=== PATIENT | female | born 1995 | race Caucasian/White ===

== ENCOUNTER → 2017-06-15 12:54 | Outpatient (CLI) | payer MEDICAID, SELFPAY ==
[2017-06-15 14:26] LABS: Absolute Lymphocyte Count 1.87 X10^3/ul (0.83-4.51); Absolute Neutrophil Count 3.4 X10^3/uL (2.0-7.7); Basophil# 0.01 X10^3/uL; Basophil% 0.2 % (0-1); Eosinophil# 0.13 X10^3/uL; Eosinophils% 2.2 % (0-5); Hematocrit 41.7 % (37-47); Hemoglobin 14.6 g/dl (12.0-15.0); Lymphocyte # 1.87 X10^3/ul (4.0); Lymphocyte % 31.5 % (19-41); Mean Corpuscular Hgb 30.5 pg (27.0-32.0); Mean Corpuscular Volume 87.1 fL (81-99); Mean Platelet Vol. 10.4 fl (6.2-12.0); Monocyte# 0.48 X10^3/uL; Monocyte% 8.1 % (0-10); Neutrophil # 3.44 X10^3/uL (2.7-7.7); Neutrophil % 57.8 % (47-70); POSITIVE COUNT NO; POSITIVE DIFFERENTIAL NO; POSITIVE MORPHOLOGY NO; Platelet Count 337 K/mm3 (150-450); RBC Distribution Width CV 12.6 % (11.6-14.6); RBC Distribution Width SD 39.5 fl (35.1-43.9); Red Blood Count 4.79 M/mm3 (4.2-5.4); White Blood Count 5.9 K/mm3 (4.4-11.0)
[2017-06-15 14:46] LABS: T4 Free Direct 0.91 ng/dL (0.76-1.46); Thyroid Stim Hormone (TSH) 0.83 uIU/mL (0.358-3.74)
== END ==
PROVIDERS: Family Provider Pediatrics; PCP Pediatrics; Visit Provider Pediatrics
DX: R63.5 Abnormal weight gain (principal); R53.83 Other fatigue
CPT/HCPCS: 36415; 84439; 84443; 85025

== ENCOUNTER → 2017-10-16 15:06 | Outpatient (CLI) | payer MEDICAID, SELFPAY ==
[2017-10-16 17:55] LABS: hCG Titer Quant., Serum < 1 mIU/mL (<9 non-preg)
[2017-10-16 17:59] LABS: Follicle Stimulating Hormone 7.3 mIU/mL; Luteinizing Hormone 11.4 mIU/mL; Prolactin 16.5 ng/mL; Thyroid Stim Hormone (TSH) 0.96 uIU/mL (0.358-3.74)
== END ==
PROVIDERS: Visit Provider Obstetrics & Gynecology
DX: N92.6 Irregular menstruation, unspecified (principal)
CPT/HCPCS: 36415; 83001; 83002; 84146; 84443; 84702

== ENCOUNTER 2017-11-22 08:31 | Outpatient (RCR) | payer MEDICAID, SELFPAY | END 2017-11-30 23:59 | LOC: NS 08:31 | PROVIDERS: Family Provider Pediatrics; PCP Pediatrics; Visit Provider Obstetrics & Gynecology | DX: R63.5 Abnormal weight gain (principal); Z71.3 Dietary counseling and surveillance ==

== ENCOUNTER 2017-11-24 10:17 | Emergency (ER) | payer MEDICAID, SELFPAY ==
[2017-11-24 10:18] VITALS: BP 136/74; PULSE 72; RESP 16; TEMP 36.7; O2SAT 98; BMI 37.0
--- NOTE | 2017-11-24 10:45 | ED.DCSUM_ITS ---
- ER Visit Summary Date of Service: 11/24/17 Chief Complaint: Vaginal bleeding History of Present Illness: The patient is a 22 F has had vaginal bleeding for the past 10 days. She is passing clots, this morning passed a large, egg-sized clot. Patient had a baby in December. She has had irregular periods since that time. Her last period before this current one was in July. She is an appointment to see her COSMETICS COUNTER MANAGER in 2 days. Physical Examination: Vital signs are unremarkable. Head neck examination is unremarkable. Heart is regular rate and rhythm. Lung sounds are clear. Abdomen is soft with mild suprapubic tenderness. No guarding or rebound. Test Results: CBC and chemistry studies are normal. test is negative. Pelvic ultrasound reveals endometrium measuring 17.9 mm and hypoechoic. There is some fluid in the endometrial canal. She has multiple follicles in each ovary. Emergency Department Course and Treatment: Patient was given IV fluids here. On repeat evaluation she is comfortable. I spoke with Dr. Cerna, on-call for Dr. Rolle. Patient is to keep her appointment for Sunday. Treatment Plan: [] Disposition: Discharge Impression: Menorrhagia This note was generated with GOkey dictation software. It may contain incorrect words, spelling, and punctuation that were not noted in review of the chart prior to signing ED Disposition - Plan for ED Patient: Chief Complaint: Vag Bleeding Referrals: Elisa Padilla MD [Primary Care Provider] -
[2017-11-24] MEDS: 0.9% Normal Saline 1,000 ML 150 ML IV (11:00)
[2017-11-24 11:13] LABS: Absolute Lymphocyte Count 2.27 X10^3/ul (0.83-4.51); Absolute Neutrophil Count 3.4 X10^3/uL (2.0-7.7); Basophil# 0.01 X10^3/uL; Basophil% 0.2 % (0-1); Eosinophil# 0.11 X10^3/uL; Eosinophils% 1.8 % (0-5); Hematocrit 39.4 % (37-47); Hemoglobin 13.3 g/dl (12.0-15.0); Lymphocyte # 2.27 X10^3/ul (4.0); Lymphocyte % 36.4 % (19-41); Mean Corp Hgb Conc 33.8 g/gl (32-36); Mean Corpuscular Hgb 29.8 pg (27.0-32.0); Mean Corpuscular Volume 88.3 fL (81-99); Mean Platelet Vol. 10.2 fl (6.2-12.0); Monocyte# 0.48 X10^3/uL; Monocyte% 7.7 % (0-10); Neutrophil # 3.37 X10^3/uL (2.7-7.7); Neutrophil % 53.9 % (47-70); Platelet Count 325 K/mm3 (150-450); RBC Distribution Width CV 12.8 % (11.6-14.6); RBC Distribution Width SD 40.9 fl (35.1-43.9); Red Blood Count 4.46 M/mm3 (4.2-5.4); White Blood Count 6.2 K/mm3 (4.4-11.0)
[2017-11-24 11:16] LABS: POSITIVE COUNT NO; POSITIVE DIFFERENTIAL NO; POSITIVE MORPHOLOGY NO
[2017-11-24 11:17] LABS: Anion Gap 7 (5-15); BUN 12 mg/dL (7-18); BUN/Creat Ratio 15.7 RATIO (10-20); Calcium,Total 8.6 mg/dL (8.5-10.1); Chloride 106 mmol/L (98-107); Creatinine, Serum 0.76 mg/dL (0.55-1.02); EST Glomerular Filtration Rate 102 mL/min (>60); Est Glom Filt Rate - Afr Amer 123 mL/min (>60); Estimated Creatinine Clearance 114.82 ml/min; Glucose 90 mg/dL (74-106); Potassium 3.8 mmol/L (3.5-5.1); Sodium Level 139 mmol/L (136-145)
[2017-11-24 11:44] LABS: Pregnancy, Serum, hCG Quali. NEGATIVE Negative (0-9 Nonpreg)
--- NOTE | 2017-11-24 11:51 | US_ITS ---
STUDY: ULTRASOUND TRANSVAGINAL CLINICAL: Female, 22 years old. Menorrhagia for 10 days. TECHNIQUE: Transvaginal COMPARISON: Pelvic ultrasound dated November 23, 2015. FINDINGS: Normal uterine size measuring 5.4 x 3.3 x 5.1 cm. The uterus appears retroflexed. There are no myometrial masses. Normal endometrial thickness measuring 8.2 mm. There are no endometrial masses, and there is no fluid in the endometrial cavity. There appear to be a small nabothian cyst. Normal right ovary, measuring 3.5 x 2.4 x 2.7 cm. There are multiple follicles with a dominant cyst. The dominant cyst measures 1.8 x 1.6 x 1.7 cm in size. Normal left ovary, measuring 2.9 x 1.7 x 2.1 cm. There are multiple follicles without a dominant cyst. There is no free fluid in the pelvis. Polycystic ovary disease: No. US/Transvaginal Non- IMPRESSION: 1. Normal sonographic appearance of the pelvis and both ovaries. 2. Small amount of pelvic fluid. Electronically Signed: Whitney Padilla MD at 14:37 EDT , Service support ,
[2017-11-24 14:55] VITALS: BP 114/61; PULSE 74; RESP 16; O2SAT 100
--- NOTE | 2017-11-24 15:26 | ED.DEP ---
ED Disposition - Plan for ED Patient: Disposition: Home or Assisted Living Chief Complaint: Vag Bleeding Instructions: ED Bleeding Menstrual Heavy Referrals: Luba Rolle MD [STAFF PHYSICIAN] - Keep [facility] appointment
[2017-11-24 15:36] VITALS: BP 116/78; PULSE 78; RESP 16; O2SAT 98
== END 2017-11-24 15:37 | disposition home or self-care (01) ==
PROVIDERS: Emergency Provider Emergency Medicine; Family Provider Pediatrics; PCP Pediatrics
DX: N92.0 Excessive and frequent menstruation with regular cycle (principal); R10.9 Unspecified abdominal pain
CPT/HCPCS: 76830; 80048; 84703; 85025; 93976; 96360; 96361; 99283; J7030; J7040; A4216

== ENCOUNTER 2017-12-07 08:16 | Outpatient (RCR) | payer MEDICAID, SELFPAY | END 2017-12-07 23:59 | LOC: NS 08:16 | PROVIDERS: Family Provider Pediatrics; PCP Pediatrics; Visit Provider Obstetrics & Gynecology | DX: R63.5 Abnormal weight gain (principal); Z71.3 Dietary counseling and surveillance | CPT/HCPCS: 97802 ==

== ENCOUNTER → 2018-07-02 14:40 | Outpatient (CLI) | payer OTHER, MEDICAID, SELFPAY | PROVIDERS: PCP Pediatrics; Visit Provider Obstetrics & Gynecology | DX: O35.8XX0 Maternal care for other (suspected) fetal abnormality and damage, not applicable or unspecified (principal); Z3A.00 Weeks of gestation of pregnancy not specified | CPT/HCPCS: 36415 ==

== ENCOUNTER 2018-08-07 20:00 | Outpatient (CLI) | payer OTHER, MEDICAID, SELFPAY ==
[2018-08-07 20:21] VITALS: BMI 36.4
[2018-08-07 20:36] LABS: Mucous, Urine 0 SEEN /hpf (<or=2+)
[2018-08-07 20:57] LABS: Color, Urine Yellow (Yellow); Glucose, Dipstick Normal (Normal); Ketone-Dipstick Negative (Negative); Leukocyte Esterase-Dipstick 100 /ul (Negative); Nitrite-Dipstick Negative (Negative); Occult Blood-Urine Negative /ul (Negative); Protein-Dipstick Negative (Negative); Urine Bilirubin Dipstick Negative (Negative); Urine Clarity Clear (Clear); Urine Urobilinogen 1 mg/dl (Normal)
[2018-08-07 21:26] LABS: Bacteria 2+ /hpf (None Seen); Red Blood Cells-Urine 0-5 SEEN /hpf (0-5); White Blood Cells 0-5 SEEN /hpf (0-5)
[2018-08-07 21:27] LABS: Squamous Epithelial Cells - UA 10-25 SEEN /hpf (5-10)
--- NOTE | 2018-08-14 08:04 | OB.TRI.NOTE ---
History of Present Illness Date of Service: 08/07/18 Was patient seen by the physician?: Yes Reason For Visit: ABD PAIN Date of Service: 08/07/18 Final MARLEN: 11/25/18 Final MARLEN Source: US <20 weeks Gestational age: 25 Weeks and 2 Days History of Present Illness: Complains of right low back pain. SOme urinary urgency and frequency. No hematuria. Good movement. No signs of PPROM. 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 History of excision of lesion EXCISION 8 MM LESION LEFT OCCIPITAL SCALP, MEDIAL, WITH 3 CM LAYERED CLOSURE AND EXCISION LESION LEFT OCCIPITAL SCALP, LATERAL, WITH 2 CM LAYERED CLOSURE- 12/10/15 Laboratory Studies: Laboratory Tests 08/07/18 Range/Units 20:10 Urine Color Yellow (Yellow) Urine Clarity Clear (Clear) Urine pH 7.0 (5.0 - 8.0) Ur Specific [place] 1.010 (1.002-1.030) Urine Protein Negative (Negative) mg/dl Urine Glucose (UA) Normal (Normal) mg/dl Urine Ketones Negative (Negative) mg/dl Urine Occult Blood Negative (Negative) /ul Urine Nitrite Negative (Negative) Urine Bilirubin Negative (Negative) mg/dL Urine Urobilinogen 1 H (Normal) mg/dl Ur Leukocyte Esterase 100 H (Negative) /ul Urine RBC 0-5 SEEN (0-5) /hpf Urine WBC 0-5 SEEN (0-5) /hpf Ur Squamous Epith Cells 10-25 SEEN (5-10) /hpf Urine Bacteria 2+ (None Seen) /hpf Urine Mucus 0 SEEN (<or=2+) /hpf Physical Exam General: Alert, Oriented x3, Cooperative, No apparent distress Cardiovascular: Regular rate, Regular Rhythm Lungs: Clear to auscultation, Normal air movement Abdomen: Soft, Non Tender, Non-Distended, Gravid, Appropriate for Gestational Age Extremities:: No edema Neurological: Neuro grossly intact [facility] SPECIALIST: Normal external genitalia Estimated gestational size: Appropriate for gestational size Presentation: Unable to assess NST - FHR Rate Baby A Baseline: 140s Variability:: Moderate Accelerations:: 10 x 10 Decelerations:: None NST Reactive:: Yes, Appropriate for gestational age FHR Category:: Category I Uterine Activity:: none Impression/Plan Not in labor. Reassured. NST appropriate for gestational age.
--- NOTE | 2018-08-14 08:08 | OB.TRI.HP_ITS ---
History of Present Illness Date of Service: 08/07/18 Was patient seen by the physician?: Yes Reason For Visit: ABD PAIN Date of Service: 08/07/18 Final MARLEN: 11/25/18 Final MARLEN Source: US <20 weeks Gestational age: 25 Weeks and 2 Days History of Present Illness: Complains of right low back pain. SOme urinary urgency and frequency. No hematuria. Good movement. No signs of PPROM. 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 History of excision of lesion EXCISION 8 MM LESION LEFT OCCIPITAL SCALP, MEDIAL, WITH 3 CM LAYERED CLOSURE AND EXCISION LESION LEFT OCCIPITAL SCALP, LATERAL, WITH 2 CM LAYERED CLOSURE- 12/10/15 Laboratory Studies: Laboratory Tests 08/07/18 Range/Units 20:10 Urine Color Yellow (Yellow) Urine Clarity Clear (Clear) Urine pH 7.0 (5.0 - 8.0) Ur Specific [place] 1.010 (1.002-1.030) Urine Protein Negative (Negative) mg/dl Urine Glucose (UA) Normal (Normal) mg/dl Urine Ketones Negative (Negative) mg/dl Urine Occult Blood Negative (Negative) /ul Urine Nitrite Negative (Negative) Urine Bilirubin Negative (Negative) mg/dL Urine Urobilinogen 1 H (Normal) mg/dl Ur Leukocyte Esterase 100 H (Negative) /ul Urine RBC 0-5 SEEN (0-5) /hpf Urine WBC 0-5 SEEN (0-5) /hpf Ur Squamous Epith Cells 10-25 SEEN (5-10) /hpf Urine Bacteria 2+ (None Seen) /hpf Urine Mucus 0 SEEN (<or=2+) /hpf Physical Exam General: Alert, Oriented x3, Cooperative, No apparent distress Cardiovascular: Regular rate, Regular Rhythm Lungs: Clear to auscultation, Normal air movement Abdomen: Soft, Non Tender, Non-Distended, Gravid, Appropriate for Gestational Age Extremities:: No edema Neurological: Neuro grossly intact VICE PRESIDENT OF TALENT ACQUISITION: Normal external genitalia Estimated gestational size: Appropriate for gestational size Presentation: Unable to assess NST - FHR Rate Baby A Baseline: 140s Variability:: Moderate Accelerations:: 10 x 10 Decelerations:: None NST Reactive:: Yes, Appropriate for gestational age FHR Category:: Category I Uterine Activity:: none Impression/Plan Not in labor. Reassured. NST appropriate for gestational age.
== END 2018-08-07 21:50 | disposition home or self-care (01) ==
LOC: WPOUT 20:14 → WP 20:15
PROVIDERS: Visit Provider Obstetrics & Gynecology
DX: O26.892 Other specified pregnancy related conditions, second trimester (principal); R10.9 Unspecified abdominal pain; R35.0 Frequency of micturition; R39.15 Urgency of urination; M54.5 Low back pain; O99.512 Diseases of the respiratory system complicating pregnancy, second trimester; J45.909 Unspecified asthma, uncomplicated; Z3A.25 25 weeks gestation of pregnancy
CPT/HCPCS: 59025; 59050; 81001; 87086; 87088; 99218; G0378

== ENCOUNTER 2018-08-31 18:50 | Outpatient (CLI) | payer OTHER, MEDICAID, SELFPAY ==
[2018-08-21 11:23] VITALS: BMI 36.4
[2018-08-31 19:05] VITALS: BMI 36.2
[2018-08-31 19:34] LABS: ROM Internal Control Test YES-OK TO RESULT pt. (Internal QC); ROM Patient Test Negative (Negative)
--- NOTE | 2018-09-09 21:36 | OB.TRI.NOTE ---
History of Present Illness Was patient seen by the physician?: No Reason For Visit: R/O LABOR Date of Service: 08/31/18 Final MARLEN: 11/25/18 Final MARLEN Source: US <20 weeks Gestational age: 27 Weeks and 5 Days History of Present Illness: 27+ week intrauterine presents with some clear leaking fluid. Concerned about rupture of membranes. 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 ROM test negative. Reactive nonstress test with no contractions. Will release to home with routine instructions.
== END 2018-08-31 19:55 | disposition home or self-care (01) ==
LOC: WPOUT 18:57 → WP 18:57
PROVIDERS: Family Provider Pediatrics; PCP Pediatrics; Visit Provider Obstetrics & Gynecology
DX: O26.892 Other specified pregnancy related conditions, second trimester (principal); N89.8 Other specified noninflammatory disorders of vagina; Z3A.27 27 weeks gestation of pregnancy
CPT/HCPCS: 59025; 59050; 84112; 99218; G0378

== ENCOUNTER 2018-10-15 00:30 | Outpatient (CLI) | payer OTHER, MEDICAID, SELFPAY ==
[2018-10-15 00:56] VITALS: BMI 36.8
[2018-10-15 01:22] LABS: Bacteria 0 SEEN /hpf (None Seen); Red Blood Cells-Urine 0 SEEN /hpf (0-5)
[2018-10-15 01:43] LABS: Mucous, Urine 2+ /hpf (<or=2+); Squamous Epithelial Cells - UA 25-50 SEEN /hpf (5-10); White Blood Cells 0-5 SEEN /hpf (0-5)
[2018-10-15 02:10] LABS: Color, Urine Yellow (Yellow); Glucose, Dipstick Normal (Normal); Ketone-Dipstick 15 mg/dl (Negative); Leukocyte Esterase-Dipstick 25 /ul (Negative); Nitrite-Dipstick Negative (Negative); Occult Blood-Urine Negative /ul (Negative); Protein-Dipstick 15 mg/dl (Negative); Urine Bilirubin Dipstick Negative (Negative); Urine Clarity Clear (Clear); Urine Urobilinogen 1 mg/dl (Normal)
[2018-10-15] MEDS: Acetaminophen 500 MG Tablet 1000 MG PO (04:07)
--- NOTE | 2018-10-18 10:05 | OB.TRI.NOTE ---
History of Present Illness Date of Service: 10/15/18 Was patient seen by the physician?: Yes Reason For Visit: STOMACH PAIN Date of Service: 10/15/18 Final MARLEN: 11/25/18 Final MARLEN Source: US <20 weeks Gestational age: 34 Weeks and 2 Days History of Present Illness: 34-week intrauterine presents with some abdominal crampiness. care otherwise has been uneventful. Thinks she might have a bladder infection. 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 History of excision of lesion EXCISION 8 MM LESION LEFT OCCIPITAL SCALP, MEDIAL, WITH 3 CM LAYERED CLOSURE AND EXCISION LESION LEFT OCCIPITAL SCALP, LATERAL, WITH 2 CM LAYERED CLOSURE- 12/10/15 Laboratory Studies: Laboratory Tests 10/15/18 Range/Units 01:15 Urine Color Yellow (Yellow) Urine Clarity Clear (Clear) Urine pH 6.0 (5.0 - 8.0) Ur Specific [place] 1.020 (1.002-1.030) Urine Protein 15 H (Negative) mg/dl Urine Glucose (UA) Normal (Normal) mg/dl Urine Ketones 15 H (Negative) mg/dl Urine Occult Blood Negative (Negative) /ul Urine Nitrite Negative (Negative) Urine Bilirubin Negative (Negative) mg/dL Urine Urobilinogen 1 H (Normal) mg/dl Ur Leukocyte Esterase 25 H (Negative) /ul Urine RBC 0 SEEN (0-5) /hpf Urine WBC 0-5 SEEN (0-5) /hpf Ur Squamous Epith Cells 25-50 SEEN (5-10) /hpf Urine Bacteria 0 SEEN (None Seen) /hpf Urine Mucus 2+ (<or=2+) /hpf NST - FHR Rate Baby A NST Reactive:: Yes FHR Category:: Category I Uterine Activity:: Mild uterine irritability Impression/Plan 34+ week intrauterine with some transient contractions. Cervix is nonthreatening. Reactive nonstress test. Discomfort subsided with p.o. fluids and after monitoring for several hours. Urine analysis was negative. Discharged to home with routine instructions and she is to return if contractions become stronger.
== END 2018-10-15 05:55 | disposition home or self-care (01) ==
LOC: WPOUT 00:40 → WP 00:41
PROVIDERS: Family Provider Pediatrics; PCP Pediatrics; Visit Provider Obstetrics & Gynecology
DX: O26.893 Other specified pregnancy related conditions, third trimester (principal); R10.9 Unspecified abdominal pain; Z3A.34 34 weeks gestation of pregnancy
CPT/HCPCS: 59025; 59050; 81001; 87086; 87088; 99218; G0378

== ENCOUNTER 2018-11-16 23:54 | Outpatient (CLI) | payer OTHER, MEDICAID, SELFPAY ==
[2018-11-17 00:51] VITALS: BMI 37.0
[2018-11-17 01:08] LABS: ROM Internal Control Test YES-OK TO RESULT pt. (Internal QC); ROM Patient Test Negative (Negative)
--- NOTE | 2018-11-17 10:36 | OB.TRI.NOTE ---
History of Present Illness Date of Service: 11/17/18 Was patient seen by the physician?: No Reason For Visit: RULE OUT LABOR Final MARLEN: 11/25/18 Final MARLEN Source: US <20 weeks Gestational age: 38 Weeks and 6 Days History of Present Illness: 23yo @ 38 6/7wga with c/o contractions Allergies No Known Allergies Allergy (Verified 11/17/18 00:54) - Pertinent Past Medical History Medical History: Past Medical History (Last Updated 08/21/18 @ 11:13 by Shirley Le) Anxiety and depression Asthma Back pain Frequent headaches Intradermal nevus POLYPOID INTRADERMAL NEVUS LEFT OCCIPITAL SCALP MEDIAL INTRADERMAL NEVUS LEFT OCCIPITAL SCALP, LATERAL Seasonal allergies UTI (urinary tract infection) Vision problems Surgical History: Past Surgical History (Last Updated 07/17/18 @ 15:02 by Shirley Le) 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
== END 2018-11-17 03:05 | disposition home or self-care (01) ==
LOC: WPOUT 11-17 00:39 → WP 11-17 00:40
PROVIDERS: Family Provider Pediatrics; PCP Pediatrics; Visit Provider Obstetrics & Gynecology
DX: O47.1 False labor at or after 37 completed weeks of gestation (principal); Z3A.38 38 weeks gestation of pregnancy
CPT/HCPCS: 59050; 84112; 99218; G0378

== ENCOUNTER 2018-11-18 13:45 | Inpatient (IN) | payer OTHER, MEDICAID, SELFPAY ==
[2018-11-17 00:51] VITALS: BMI 37.0
[2018-11-18 10:32] VITALS: BMI 37.0
[2018-11-18 12:41] LABS: Hematocrit 31.9 % (37-47); Mean Corp Hgb Conc 34.5 g/dL (32-36); Mean Corpuscular Hgb 29.7 pg (27.0-32.0); Mean Corpuscular Volume 86.2 fL (81-99); Mean Platelet Vol. 10.8 fl (6.2-12.0); Platelet Count 282 K/mm3 (150-450); RBC Distribution Width CV 12.5 % (11.6-14.6); White Blood Count 6.5 K/mm3 (4.4-11.0)
[2018-11-18 12:45] LABS: Protein, Urine (Random) 35.5 mg/dL (<11.9); Protein:Creat Ratio 202 mg/g CRE (0-200)
[2018-11-18 13:11] LABS: ALB/GLOB Ratio 0.6 RATIO (0.9-2.4); AST(SGOT) 78 U/L (15-37); Alanine Aminotransfer ALT/SGPT 79 U/L (13-56); Albumin, Serum 2.5 g/dL (3.2-5.0); Alkaline Phosphatase 211 U/L (45-117); Anion Gap 6 (5-15); BUN 9 mg/dL (7-18); BUN/Creat Ratio 15.4 RATIO (10-20); Calcium,Total 8.6 mg/dL (8.5-10.1); Chloride 109 mmol/L (98-107); Creatinine, Serum 0.58 mg/dL (0.55-1.02); EST Glomerular Filtration Rate 138 mL/min (>60); Est Glom Filt Rate - Afr Amer 167 mL/min (>60); Estimated Creatinine Clearance 149.21 ml/min; Globulin 4.2 g/dL (2.2-4.2); Glucose 90 mg/dL (74-106); Potassium 3.6 mmol/L (3.5-5.1); Protein, Total 6.7 g/dL (6.4-8.2); Sodium Level 138 mmol/L (136-145); Uric Acid 4.3 mg/dL (2.6-6.0)
--- NOTE | 2018-11-18 13:58 | PCM.HP.OB ---
- Problem List (1) 39 weeks gestation of Status: Acute (2) Cholestasis Status: Acute History Date of Admission: 11/18/18 Final MARLEN: 11/25/18 Final MARLEN Source: US <20 weeks Gestational age: 39 weeks History of this : This is a 23 year-old, G [3], P [2], at 39 weeks gestational age. 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 History of excision of lesion Z98.890, Z87.2 EXCISION 8 MM LESION LEFT OCCIPITAL SCALP, MEDIAL, WITH 3 CM LAYERED CLOSURE AND EXCISION LESION LEFT OCCIPITAL SCALP, LATERAL, WITH 2 CM LAYERED CLOSURE- 12/10/15 Allergies No Known Allergies Allergy (Verified 11/17/18 00:54) Home Medications: Home Medications loqazidqje-ozuoslmksmrbp-oqpcvoqo 50 mg-325 mg-40 mg tablet 1 tab PO Q6H PRN 08/21/18 Hydroxyzine Pamoate [Vistaril] 1 tab PO BID PRN 08/31/18 Wnyuwg65/Iron Fum,Ps/Folic/Dha 1 tab PO DAILY 08/31/18 Acetaminophen [Tylenol Extra Strength] 500 mg PO PRN PRN 10/15/18 Ranitidine [Zantac] 150 mg PO BID PRN 10/15/18 Smoking Status: Never smoker Alcohol: None Number of Fetus(es): 1 NST - FHR Rate Baby A Baseline: 125 Variability:: Moderate Accelerations:: 15 x 15 Decelerations:: None NST Reactive:: Yes FHR Category:: Category I Uterine Activity:: 0-1/10 min History Past Pregnancies: Past Pregnancies Delivery Date GA/Weeks Outcome Route Weight Gender Labor Length Anesthesia Delivery Location 12/2013 40 Living 7lb 3.8oz M 8 Epidural [facility] 12/2016 39 Living RISHABH 7lb 5.8oz M 8 Epidural [facility] Expected Delivery Method: Spontaneous Vaginal Describe any other labor & delivery plans:: Pitocin induction of labor Review of Systems Constitutional: Denies: Fever Cardiovascular: Denies: Chest Pain, Edema Respiratory: Denies: Cough, Shortness of Breath Gastrointestinal: Denies: Abdominal Pain, Nausea, Vomiting Neurological: Reports: Headaches Physical Exam Vitals: AVSS General: Alert, Oriented x3, No apparent distress HEENT: Atraumatic, Normocephalic Cardiovascular: Regular rate, Regular Rhythm, Normal S1, Normal S2 Lungs: Clear to auscultation, Normal air movement Abdomen: Soft, Non Tender, Non-Distended, Gravid, - - US - cephalic fetus Extremities:: No edema Neurological: Neuro grossly intact RN UROLOGY: Normal external genitalia Estimated gestational size: Appropriate for gestational size Presentation: Cephalic Cervix Dilation (cm): 2 - per RN exam Station: -2 Effacement (%): 70 Assessment/Plan All Active Problems (Last Updated 08/21/18 @ 11:13 by Shirley Le) 39 weeks gestation of (Acute) Cholestasis (Acute) This is a 23 year-old, G [3], P [2001], at 39 weeks gestational age with cholestasis of . -Elevated LFTs, hx chronic headaches with no other evidence of preeclampsia. -Findings reviewed with patient, advised IOL. Plan pitocin for Johnson score = 6. -Discussed induction process and labor/delivery risks, benefits - including but not limited to risk for pain, bleeding, infection, injury to bowel or bladder, VTE, need for vacuum delivery, internal monitoring, possible section, need for further surgery including but not limited to dilation and curettage or hysterectomy, or . -Patient given opportunity to ask questions and questions answered to her satisfaction. -Maternal and statuses reassuring -LARC declined
[2018-11-18] MEDS: Lactated Ringers 1,000 ML 50 ML IV (14:50)
[2018-11-18 15:19] LABS: Absolute Neutrophil Count 5.4 X10^3/uL (2.0-7.7); Basophil# 0.01 X10^3/uL; Basophil% 0.1 % (0-1); Eosinophil# 0.05 X10^3/uL; Eosinophils% 0.7 % (0-5); Hematocrit 34.9 % (37-47); Hemoglobin 11.8 g/dL (12.0-15.0); Mean Corp Hgb Conc 33.8 g/dL (32-36); Mean Corpuscular Hgb 29.1 pg (27.0-32.0); Mean Corpuscular Volume 86.2 fL (81-99); Mean Platelet Vol. 11.1 fl (6.2-12.0); Monocyte% 6.7 % (0-10); NRBC Flagged by Analyzer 0 % (0-5); Neutrophil # 5.41 X10^3/uL (2.7-7.7); Platelet Count 304 K/mm3 (150-450); RBC Distribution Width CV 12.7 % (11.6-14.6); RBC Distribution Width SD 39.7 fl (35.1-43.9); Red Blood Count 4.05 M/mm3 (4.2-5.4); White Blood Count 7.5 K/mm3 (4.4-11.0)
[2018-11-18] MEDS: Oxytocin 30 units/NS 500 ml 30 UNITS/500 ML IV.SOLN IV (15:43)
[2018-11-18] MEDS: Mag Hydrox/Al Hydrox/Simeth 30 ML UDC PO (21:27)
[2018-11-18] MEDS: Lactated Ringers 1,000 ML 999 ML IV (21:27)
[2018-11-18] MEDS: Oxytocin 30 units/NS 500 ml 30 UNITS/500 ML IV.SOLN 334 UNITS IV (21:39)
[2018-11-18] MEDS: Methylergonovine 0.2 MG/ML Ampul IM (21:48)
--- NOTE | 2018-11-18 21:54 | PCM.OPRPT ---
Vaginal Delivery Maternal Presentation: Medically Indicated Induction Method of Induction: Pitocin, Amniotomy Medical Reason for Induction: - - Cholestasis of Amniotic Membrane Rupture Type: Artificial Amniotic Fluid Description: Clear Final MARLEN: 11/25/18 Final MARLEN Source: US <20 weeks Gestational age: 39 Weeks and 0 Days Date of Procedure: 11/18/18 Pre-Operative Diagnosis: IUP; Cholestasis of Post-Operative Diagnosis: IUP; Cholestasis of Surgery/ Procedure Performed: Spontaneous Vaginal Delivery Type of Anesthesia: None Description of Procedure: Spontaneous vaginal delivery of a viable female infant with Apgars of 9/9 from an occiput anterior presentation with clear amniotic fluid and normal three-vessel placenta. No episiotomy or lacerations. Patient precipitously delivered and Maria Fernanda Altman CNM, entered the room immediately before delivery and was present as the baby delivered. Dr. Sim Cerna MD, arrived immediately thereafter and eventually ligated the umbilical cord and delivered placenta. Methergine was ordered to help with oozing that was slow to subside. Presentation: Vertex Placental Delivery Description: Spontaneous Placenta Disposition: [facility] Cord Vessel Description: 3 Vessels Cord Entanglement: None Estimated Blood Loss: 250 cc Infant A gender: Female (1 minute): 9 (5 minute): 9 Episiotomy Description: None Laceration: None Medications given after delivery: IV Pitocin, IM Methergin Complications: None
--- NOTE | 2018-11-18 22:04 | DCINST_ITS ---
Discharge Diet: No Restrictions Discharge Activity: May Shower, May Take a Tub Bath May resume sexual activity in: 4-6 weeks Additional Activity Instructions:: Nothing in the vagina for 4-6 weeks. You may return to work/school in 6 weeks. Call your doctor if you observe: Fever of 101 or Higher, Inability to urinate, Inability to have a bowel movement, Using more than one pad per hour Additional Instructions: If you experience any of the following, contact your healthcare provider. * Bleeding that soaks a pad every hour for 2 hours * Unrelieved incision or abdominal pain * Swelling, redness, discharge or bleeding from your incision or episiotomy site * Your incision begins to separate * Problems urinating (including inability to urinate or burning while urinating). * Visual changes * Severe headache * Flu-like symptoms * Pain or redness in one of both of your breasts * Pain, warmth, tenderness or swelling in your legs, especially the calf area * Frequent nausea and vomiting * Symptoms of depression or anxiety If you experience any of the following, call 911 or go to the nearest Emergency Room. * Chest pain * Problems breathing * Seizure activity * Partial or complete paralysis of a body part, slurred speech, weakness or drooping of the face, or a sudden inability to walk or hold your balance Allergies/Adverse Reactions: Allergies No Known Allergies Allergy (Verified 11/17/18 00:54) Medications to take at Discharge cmqcrhumqs-ewrrypmmljqwo-clbzlawt 50 mg-325 mg-40 mg tablet 1 tab PO Q6H PRN 08/21/18 Hydroxyzine Pamoate [Vistaril] 1 tab PO BID PRN 08/31/18 Gaqnok71/Iron Fum,Ps/Folic/Dha 1 tab PO DAILY 08/31/18 Acetaminophen [Tylenol Extra Strength] 500 mg PO PRN PRN 10/15/18 Ranitidine [Zantac] 150 mg PO BID PRN 10/15/18 Please Follow Up With: Luba Rolle MD When: Call to make an appointment with your doctor in 6 weeks. Primary Care Physician: Elisa Padilla MD [Primary Care Provider] - Test Results: Test results from this visit will be discussed in further detail at your follow- up appointment, if applicable.
[2018-11-18] MEDS: Ibuprofen 600 MG Tablet PO (23:47)
[2018-11-19 03:00] VITALS: BP 122/67; PULSE 76; RESP 16; TEMP 37.3
[2018-11-19] MEDS: Ibuprofen 600 MG Tablet PO ×2 (05:39→11:21)
--- NOTE | 2018-11-19 07:23 | PN.OBGYN_ITS ---
Patient Problems: Active and Suspected Problems (Last Updated 08/21/18 @ 11:13 by Shirley Le) 39 weeks gestation of (Acute) Cholestasis (Acute) Subjective: Patient without complaints. Breast-feeding going well. Reports minimal vaginal bleeding. - Physical Exam Vital Signs Temp Pulse Resp BP 99.2 F H 76 16 122/67 H 11/19/18 03:00 11/19/18 03:00 11/19/18 03:00 11/19/18 03:00 Weight: 236 lb 15.951 oz Body Mass Index (BMI) 37.0 Intake and Output for Last 24 Hours 11/17/18 11/18/18 11/19/18 23:59 23:59 23:59 Intake Total 763 / 763 Output Total 850 / 1250 800 / 800 Balance -87 / -487 -800 / -800 Laboratory Tests Past 24 Hrs 11/18/18 11/18/18 11/18/18 12:00 12:10 12:10 WBC 6.5 RBC 3.70 L Hgb 11.0 L Hct 31.9 L MCV 86.2 MCH 29.7 MCHC 34.5 RDW Std Deviation 39.0 RDW Coeff of Juan Jose 12.5 Plt Count 282 MPV 10.8 Immature Gran % (Auto) Neut % (Auto) Lymph % (Auto) Alexander % (Auto) Eos % (Auto) Baso % (Auto) Absolute Neuts (auto) Absolute Lymphs (auto) Nucleated RBC % Sodium 138 Potassium 3.6 Chloride 109 H Carbon Dioxide 23.0 Anion Gap 6 BUN 9 Creatinine 0.58 Estim Creat Clear Calc 149.21 Est GFR (MDRD) Af Amer 167 Est GFR (MDRD) Non-Af 138 BUN/Creatinine Ratio 15.4 Glucose 90 Uric Acid 4.3 Calcium 8.6 Total Bilirubin 1.30 H AST 78 H ALT 79 H Alkaline Phosphatase 211 H Total Protein 6.7 Albumin 2.5 L Globulin 4.2 Albumin/Globulin Ratio 0.6 L U Random Total Protein 35.5 H Urine Creatinine 176.00 Protein/Creatinin Ratio 202 H 11/18/18 14:50 WBC 7.5 RBC 4.05 L Hgb 11.8 L Hct 34.9 L MCV 86.2 MCH 29.1 MCHC 33.8 RDW Std Deviation 39.7 RDW Coeff of Juan [place] 12.7 Plt Count 304 MPV 11.1 Immature Gran % (Auto) 0.500 Neut % (Auto) 72.0 H Lymph % (Auto) 20.0 Alexander % (Auto) 6.7 Eos % (Auto) 0.7 Baso % (Auto) 0.1 Absolute Neuts (auto) 5.4 Absolute Lymphs (auto) 1.50 Nucleated RBC % 0 Sodium Potassium Chloride Carbon Dioxide Anion Gap BUN Creatinine Estim Creat Clear Calc Est GFR (MDRD) Af Amer Est GFR (MDRD) Non-Af BUN/Creatinine Ratio Glucose Uric Acid Calcium Total Bilirubin AST ALT Alkaline Phosphatase Total Protein Albumin Globulin Albumin/Globulin Ratio U Random Total Protein Urine Creatinine Protein/Creatinin Ratio Medical Necessity - Tobacco Use Smoking Status: Never smoker Assessment/Plan All Active Problems (Last Updated 08/21/18 @ 11:13 by Shirley Le) 39 weeks gestation of (Acute) Cholestasis (Acute) Doing well day #2 status post routine spontaneous vaginal delivery. Continuing present care.
[2018-11-19 08:45] VITALS: BP 117/62; PULSE 78; RESP 16; TEMP 36.8; O2SAT 98
--- NOTE | 2018-11-19 12:00 | NURSING ---
Patient ambulated to bathroom to shower. Tolerated well. Sitting in bed. Family at bedside. Call light in reach. Denies further needs at this time.
[2018-11-19 12:39] VITALS: BP 127/65; PULSE 95; RESP 18; TEMP 36.2
[2018-11-19] MEDS: Acetaminophen 500 MG Tablet 1000 MG PO (14:28)
[2018-11-19 16:15] VITALS: BP 119/62; PULSE 88; RESP 16; TEMP 36.3
[2018-11-19 19:55] VITALS: BP 124/71; PULSE 97; RESP 18; TEMP 37.1
[2018-11-20] MEDS: Ibuprofen 600 MG Tablet PO (00:04)
[2018-11-20 02:05] VITALS: BP 115/68; PULSE 84; RESP 18; TEMP 36.3
[2018-11-20 08:00] VITALS: BP 114/72; PULSE 82; RESP 16; TEMP 36.6
--- NOTE | 2018-11-20 10:01 | PCM.PN.OB ---
Patient Problems: Active and Suspected Problems (Last Updated 08/21/18 @ 11:13 by Shirley Le) 39 weeks gestation of (Acute) Cholestasis (Acute) Subjective: Patient without complaints. Breast-feeding going well. Ready to go home today. - Physical Exam Vital Signs Temp Pulse Resp BP Pulse Ox 97.9 F 82 16 114/72 98 11/20/18 08:00 11/20/18 08:00 11/20/18 08:00 11/20/18 08:00 11/19/18 08:45 Oxygen Delivery Method Room Air Weight: 236 lb 15.951 oz Body Mass Index (BMI) 37.0 Intake and Output for Last 24 Hours 11/18/18 11/19/18 11/20/18 23:59 23:59 23:59 Intake Total 763 / 763 Output Total 850 / 1250 800 / 800 Balance -87 / -487 -800 / -800 Medical Necessity - Tobacco Use Smoking Status: Never smoker Assessment/Plan All Active Problems (Last Updated 08/21/18 @ 11:13 by Shirley Le) 39 weeks gestation of (Acute) Cholestasis (Acute) Doing well day #2 status post routine spontaneous vaginal delivery. Will release to home with routine instructions
--- NOTE | 2018-11-20 12:20 | CASEMGMT ---
Addendum entered and electronically signed by Maite Bernal 11/20/18 12:38: Date of Referral/Notification: 11/19/2018 Time of Referral: [id number] Referred By: Dr. Lynsey Finney Reason for Referral: history of anxiety Original Note: Social Work Labor and Delivery Unit Brief Assessment Date of Referral/Notification: Time of Referral: Referred By: Reason for Referral: Date of Intervention: 11/20/2018 Time of Intervention: 1040 Informant: Medical record and mother of baby (MOB) Sejal Huddleston History: MOB is 23 year old female, G3, P2 to 3 after delivery of baby girl Ayana Huddleston this admission. MOB is to father of baby (FOB) Nasir Huddleston, have been together since high school for the last 6 and 1/2 years. MOB and FOB now have 3 children together: Ayana (born 11.18.2018), Dionicio (born 01.08.2014), and Shadi (born 01-13-2017). MOB's care for Ayana started at 10 weeks gestation. MOB had college classes completed, currently stays at home and cares for the kids. FOB works fulltime at [employer]. MOB reports history of anxiety, and dealt increased emotions after first born, which MOB reports resolved fairly quickly, within a couple of weeks after onset. After second born MOB developed some anxiety which MOB attributes to have a new baby, working on breast feeding, and going to school. MOB reports was prescribed medication, Vistaril, to take as needed. MOB reports has been feeling pretty good at this time, denies any worries or concerns about depression or anxiety. No reports of any substance use issues for self or for FOB. No reports of any home safety issues. Denies any history of legal or children service involvement. Assessment: MOB pleasant and cooperative with social work visit. MOB reports to be feeling good, reports to feel a connection to baby, and feels ready to go home. MOB reports that is on transitional medicaid and will only be on this for a couple more months as FOB has insurance through employer. MOB income is over threshold for [facility], even with the addition of the new baby. MOB reports awareness of this resource should finances change for the family. MOB to have all needed infant supplies, no issues with housing or transportation reported. FOB ill be home for a day to help, then has to return to work. MOB's mother will be coming to the house to help MOB and provide addition support as MOB transitions to caring for three kids. MOB reports should anxiety surface then would use prescribe Vistaril, agrees to talk to doctor, and reports that when feeling stressed usually talks to FOB who is supportive. MOB denies any needs for home going but did accept [facility] resource list and depression packet that includes online resources. MOB smiled at appropriate times, held good eye contact, held baby and was gentle and calm. MOB looked at baby a few times, gazing at baby and smiling. MOB denies any other needs for home going. No concerns voiced by nursing staff regarding mother/child interactions. Plan: MOB and baby to home when ready. Community resource lists and depression packets given. No further needs requested or indicated. -RICCARDO Butcher, RISK ASSESSMENT ANALYST
== END 2018-11-20 10:45 | disposition home or self-care (01) | DRG 805 ==
LOC: WPOUT 14:07 → WP 15:28
PROVIDERS: Admitting Provider Obstetrics & Gynecology; Family Provider Pediatrics; PCP Pediatrics; Referring Provider Obstetrics & Gynecology; Visit Provider Obstetrics & Gynecology
DX: O26.62 Liver and biliary tract disorders in childbirth (principal); K83.1 Obstruction of bile duct; Z37.0 Single live birth; Z3A.39 39 weeks gestation of pregnancy
CPT/HCPCS: 59025; 59050; 76815; 80053; 82570; 84156; 84550; 85025; 85027; 99218; J7120; G0378

== ENCOUNTER 2019-03-13 06:28 | Day surgery (SDC) | payer OTHER, SELFPAY ==
[2019-02-06 14:25] VITALS: BMI 37.0
--- NOTE | 2019-03-12 22:03 | PCM.HP.BLA ---
History and Physical Date of Admission: 03/13/19 HISTORY OF PRESENT ILLNESS 23 year old woman presents for evaluation for TBSE. She had a lesion on her right supramedial cheek that had increased in size during her recent . Her baby has been born and she presents for further evaluation and treatment. She also has concerns about a pigmented lesion on the inferolateral aspect left nipple areolar area. She denies trauma. She denies drainage. She denies fever. She denies nipple discharge. She is presently breast feeding. PAST MEDICAL HISTORY Anxiety and depression Asthma Back pain Frequent headaches Intradermal nevus UTI (urinary tract infection) Vision problems PAST SURGICAL HISTORY Cavernous hemangioma excision of lesion ALLERGIES No Known Allergies MEDICATIONS ehjjukwwcz-fjwylsuunistu-xrqzhgef Hydroxyzine Pamoate [Vistaril] Kiufpl22/Iron Fum,Ps/Folic/Dha Acetaminophen [Tylenol Extra Strength] Ranitidine [Zantac] sertraline FAMILY HISTORY Mother - Cervical cancer Grandmother - Asthma, Hypertension Grandmother - Diabetes, Skin cancer, Lung cancer Other - Mjwxhnn-Gpnmr-[place] disease, Depression (emotion), Heart disease SOCIAL HISTORY Smoking Status: Never smoker alcohol intake: current substance use type: does not use REVIEW OF SYSTEMS General - Denies fever, fatigue, and weight loss. Eyes - Denies cataracts and glaucoma. ENT - Denies nasal congestion and sore throat. Endocrine - Denies excessive thirst and urination. Patient is with delivery ari approximately 11/25/18. Skin - Denies skin cancer. Has enlarging lesion right supramedial cheek. Has pigmented lesion inferolateral aspect left nipple areolar area. Has family history of skin cancer. Musculoskeletal - Denies joint pain, joint stiffness, weakness of muscles and joints, and arthritis. Has back pain. Neuro - Has headaches. Cardiovascular - Denies chest pain, fatigue, and shortness of breath with exertion. Psych - Denies anxiety and depression. Respiratory - Denies chronic cough. Has shortness of breath. Has asthma. Gastrointestinal - Denies nausea, vomiting, diarrhea, and constipation. Hematologic - Denies abnormal bruising and bleeding. Genitourinary - Denies hematuria and urinary frequency. PHYSICAL EXAMINATION General - Alert and Oriented. HEENT - PERRL. EOMI. Throat is clear. On the right supramedial cheek is a lesion that is raised in configuration. Measures 7 mm. Has irregular borders. No ulceration. Lesion is nontender. Has uniform coloration. She had a scar on her nasal dorsum that is flat with no contour deformities. Neck - Supple and nontender. No cervical adenopathy. No suspicious lesions noted. Chest wall - No suspicious lesions noted. Breasts - On the left nipple in the inferolateral aspect of the nipple areolar area is a pigmented lesion that measures 3 mm. Has irregular borders. No ulceration. Lesion is nontender. Lungs - Clear to auscultation. Heart - Regular rate and rhythm. Abdomen - Soft and nondistended. Extremities - FROM. No axillary adenopathy. Radial pulses are palpable. No suspicious lesions noted. Back - No suspicious lesions noted. Neuro - CN II-XII grossly intact. Psych - Normal mood and affect. ASSESSMENT 1. 7 mm lesion right supramedial cheek. 2. 3 mm pigmented lesion left nipple in the inferolateral aspect of the nipple areolar area. 3. Family history of skin cancer. 4. Currently . PLAN Recommend excision of this lesion right supramedial cheek and send it to Pathology for analysis to rule out carcinoma. If carcinoma is present then further excision would be done with local cheek advancement flap reconstruction. If precancerous actinic damage is seen, then would apply Aldara to the lesion initially. If still present after Aldara therapy, then can proceed with further excision and local cheek flap reconstruction. Recommend excision of the pigmented lesion left nipple and send it to Pathology for analysis to rule out carcinoma. If carcinoma is present then further excision would be done with nipple reconstruction. Will excise the nipple lesion after she is done . She is currently her baby. She will check with her doctor regarding medications that are ok to use during . Surgery would be done on an outpatient basis under local anesthesia and IV sedation. Patient was informed of the risks and complications of the procedure including alternatives to surgery. These were discussed with the patient personally. Patient voices understanding and wishes to proceed. Some of the risks and complications were included in a form from the [place] [employer]. Since she is , may wait on excising the left nipple lesion because of the risk of infection. If she stops temporarily until after the left nipple incision has healed, then can excise both at the same time as compared to separately at different times.
[2019-03-13] VITALS (8 sets, daily range): BP systolic 109–128; BP diastolic 76–93; PULSE 82–109; RESP 16; TEMP 36.1–37.1; O2SAT 97–100; BMI 35.6
--- NOTE | 2019-03-13 | LES_PTH ---
PATIENT: MEGHANN KAPOOR LOC: [facility] – [place], [place] U#:[id number] AGE/SX: 23/F ROOM: RE03/13/[address]: Dr. Roderick Mcnamara MD : 1995 BED: DIS: 03/13/2019 SPEC #: [id number] RECD: 03/13/19 08:41 STATUS: JESUS JACQUELIN #: [id number] BRAYAN: 03/13/19 00:[address]: Roderick Mcnamara DEPT: SURGICAL PATHOLOGY RECD BY: Yesy Ross ENTERED: 03/13/19 09:12 SP TYPE: Lesion OTHR DR: Dr. Elisa Padilla MD Tissues: Skin of face, NOS Procedures: Frozen Section (charge) Surgery Specimen Level IV HEADER OPERATION: Excision lesion supramedial cheek with frozen section PRE-OP DIAGNOSIS: Lesion right supramedial cheek TISSUE SUBMITTED: Lesion right supramedial cheek for FS at 0834 FROZEN SECTION DIAGNOSIS Lesion, right supramedial cheek, biopsy: Intradermal nevus. SJ:lena 03/13/19 MICROSCOPIC DIAGNOSIS Lesion right supramedial cheek, biopsy: Compound nevus with predominantly intradermal component. See comment. SJ:lena 03/14/19 COMMENT The lesion is present at the deep resection margin of the specimen. Please make reference to previous specimen ([id number]) lesion left occipital scalp, lateral, excisional biopsy with diagnosis of intradermal nevus and lesion left occipital scalp, medial, excisional biopsy with diagnosis of polypoid intradermal nevus. MICROSCOPIC DESCRIPTION Slides are reviewed. GROSS DESCRIPTION Received fresh for frozen section diagnosis labeled with the patient's name is a specimen designated lesion right supramedial cheek. The specimen consists of a piece of mireles-brown skin measuring 0.7 x 0.7 x 0.3 cm. The specimen is inked, bisected and submitted entirely in one cassette for frozen section diagnosis. / BOB:lena 03/13/19 TC:1 CPT: 17568, 44196
[2019-03-13] MEDS: Lactated Ringers 1,000 ML 100 ML IV (07:28)
[2019-03-13 07:30] LABS: Internal QC Validated? YES +Cl - CLEAR BKGD; Pregnancy, Urine Negative Negative
[2019-03-13] MEDS: Silver Nitrate (BKC) 1 EACH (08:50)
[2019-03-13] MEDS: Mupirocin Ointment 22gm Tube 1 APPLIC (08:52)
--- NOTE | 2019-03-13 09:02 | PCM.OPRPT ---
Report of Operation Date of Procedure: 03/13/19 Pre-Operative Diagnosis: 1. 7 mm lesion right supramedial cheek. 2. Family history of skin cancer. Post-Operative Diagnosis: 1. 7 mm intradermal nevus right supramedial cheek. 2. Family history of skin cancer. Surgery/Procedure Performed:: Intrradermal excision 7 mm intradermal nevus right supramedial cheek. Description of Surgical Findings:: 23 year old woman presents for evaluation for TBSE. She had a lesion on her right supramedial cheek that had increased in size during her recent . Her baby has been born and she presents for further evaluation and treatment. She also has concerns about a pigmented lesion on the inferolateral aspect left nipple areolar area. She denies trauma. She denies drainage. She denies fever. She denies nipple discharge. She is presently breast feeding. Patient was informed of the risks and complications of the procedure including alternatives to surgery. These were discussed with the patient personally. Patient voices understanding and wishes to proceed. Some of the risks and complications were included in a form from the [place] [employer]. Frozen section right supramedial cheek - intradermal nevus and no carcinoma seen. hadoop developer: None Type of Anesthesia:: Local MAC - xylocaine with epinephrine and IV sedation. Specimen's removed: Lesion right supramedial cheek to Pathology as a frozen section. Drains: None. Estimated Blood Loss (mL): 2 ml. Description of Procedure: Patient was taken to OR in supine position and was given IV sedation. The right supramedial cheek area was prepped and draped in the usual fashion. SCD's were placed for DVT prophylaxis. Perioperative antibiotics were given intravenously. The lesion right supramedial cheek was infiltrated with xylocaine and epinephrine. After waiting 5 minutes for the anesthetic to take effect, the lesion was excised in an intradermal fashion and sent to Pathology as a frozen section for analysis to rule out carcinoma. If carcinoma is present, then further excision will be done. Frozen section showed it was an intradermal nevus and no carcinoma seen. Hemostasis was obtained with gauze compression and silver nitrate chemical cauterization. Antibiotic ointment was applied to the wound to be done daily. Patient tolerated the procedure well and was sent to PACU in satisfactory condition. Patient will be sent home on antibiotics and Tylenol for pain. She will keep her head elevated during the initial postoperative period and will have a lifting restriction as well. Patient will followup in a week for a wound check and for discussion of the pathology report. Grafts/Implants Used: None. - Complications None. - Admit VTE Documentation VTE Present on Admission: No VTE Mechan Device Prophylaxis: SCD's VTE Pharm Prophylaxis ordered?: No Code Visit Surgery Charges CPT - 07138 ICD-10 - D49.2, D23.30, Z80.8
--- NOTE | 2019-03-13 09:11 | PCM.DC ---
You will use the following diet at home:: No restrictions Discharge Activity: May Drive, May Shower - tomorrow, - - keep head elevated. no heavy lifting. May shower in (days): 1 May resume sexual activity in: No Restrictions Ice area for (Minutes): 5 - as needed for facial swelling. Weight Bearing Status: Weight bearing as tolerated Lifting Restrictions: 20 lbs. Keep extremity elevated above heart level: - - elevate head. Call your doctor if your incision/area has: Continuous Slow Oozing, Sudden Increased Bleeding, Increased Pain/ Swelling, Increased Redness, Foul Smelling Discharge, Swelling at the incision site Call your doctor if you observe: Fever of 101 or Higher, Coldness, Increased Pain, Shortness of breath, Chest pain, Calf discomfort, Uncontrolled pain Suture Line Care: - - apply antibiotic ointment to wound daily. Cleanse incision/area with: - - may shower tomorrow. Allergies/Adverse Reactions: Allergies No Known Allergies Allergy (Verified 02/06/19 14:22) Medications to take at Discharge Acetaminophen [Tylenol Extra Strength] 500 mg PO PRN PRN 10/15/18 Clindamycin HCl [Cleocin] 300 mg PO TID #9 cap 03/13/19 The following prescriptions were given: Clindamycin HCl [Cleocin] 300 mg PO TID #9 cap Transmission Status: Pending to [id number] Orders to be completed after discharge: ,Urine Facility: [facility], Location: Laboratory Primary Care Physician: Elisa Padilla MD [Primary Care Provider] - Test Results: Test results from this visit will be discussed in further detail at your follow-up appointment, if applicable. Please Follow Up With: Roderick Mcnamara MD When: one week. call [phone] for appt. Proposed Discharge Date: 03/13/19
== END 2019-03-13 09:53 | disposition home or self-care (01) ==
LOC: SDC 06:28 → AC 06:29
PROVIDERS: Anesthesiology; Family Provider Pediatrics; PCP Pediatrics; Referring Provider Surgery; Visit Provider Surgery
PROC: (CPT 11441; principal; 2019-03-13 07:50)
DX: D22.39 Melanocytic nevi of other parts of face (principal); F53.0 Postpartum depression; F41.9 Anxiety disorder, unspecified; J45.909 Unspecified asthma, uncomplicated; K21.9 Gastro-esophageal reflux disease without esophagitis; Z87.440 Personal history of urinary (tract) infections; Z79.899 Other long term (current) drug therapy
CPT/HCPCS: 11441; 81025; 88305; 88331; J7120

== ENCOUNTER 2019-09-18 10:31 | Emergency (ER) | payer OTHER, SELFPAY ==
[2019-03-19 14:08] VITALS: BMI 35.6
[2019-09-18 10:31] VITALS: BP 146/96; PULSE 79; RESP 20; TEMP 36.6; O2SAT 98; BMI 40.7
--- NOTE | 2019-09-18 10:49 | ED.DCSUM_ITS ---
History of Present Illness Chief Complaint: Abd Pain Current Severity: Moderate Narrative: This is a 24-year-old female presenting with left upper quadrant and epigastric abdominal pain that began gradually last evening. She felt nauseated and vomited multiple times. No diarrhea. No hematemesis. No chest pain or shortness of breath. No cough. No lower abdominal pain. She has had similar symptoms intermittently for the past few evenings. She denies recent dietary changes and denies any leaking unusual last night. Currently her pain is moderate in severity. Capacity - Capacity Assessment Tool Can the patient make a choice & communicate that choice?: Yes Past Medical History - Allergies and Home Meds Allergies/Adverse Reactions: Allergies No Known Allergies Allergy (Verified 09/18/19 10:33) Primary Care Physician: Elisa Padilla MD [Primary Care Provider] - Prior records reviewed: Yes Surgical History: no surgical history Smoking Status: Never smoker Review of Systems General: Denies: Chills, Fever, Sweats Eyes: Denies: Visual changes - bilaterally, Diplopia ENT: Denies: Rhinorrhea, Sore throat Cardiovascular: Denies: Chest pain, Palpitations Respiratory: Denies: Dyspnea, Cough, Dyspnea on exertion Gastrointestinal: Reports: Abdominal pain, Nausea, Vomiting. Denies: Diarrhea, Melena, Hematochezia Genitourinary: Denies: Dysuria, Hematuria, Frequency Musculoskeletal: Denies: Back pain, Extremity Pain Skin: Denies: Rash, Wounds Neurological: Denies: Headache, Weakness, Numbness Physical Exam Vital Signs/Narrative: Vital Signs Temp Pulse Resp BP Pulse Ox 09/18/19 10:31 98 F 79 20 H 146/96 H 98 General: Well nourished, Well developed, No Acute Distress Head: Normocephalic, Atraumatic Eyes: Perrl, EOMI ENT: No rhinorrhea, Dry mucous membranes Neck: Supple, Nontender Cardiovascular: Regular rate, Regular rhythm, No murmurs Respiratory: No distress, CTA bilaterally, Chest nontender Abdomen: Soft, Nondistended, Normal bowel sounds, Tender - epigastric Back: Nontender, Normal Inspection Extremities: Nontender, No edema Skin: Normal color, No rash Neurological: Alert, Oriented x3, Cranial nerves II-XII grossly intact, Normal Strength, Normal Sensation Psychological: Normal affect, Normal Mood Diagnostic/Tx/Re-eval - Medical Decision Making Labs are all within normal limits. Liver panel and lipase both normal. Ultrasound reveals multiple gallstones but no evidence of acute cholecystitis. On reexamination, she is completely pain-free. Tolerating p.o. without difficulty. Further history reveals that she has actually been dealing with this for quite some time and she does notice that it is worse after heavy meals. Since she has gallstones alone and no evidence of cholecystitis, I feel that jose r piña can safely follow-up with general surgery as an outpatient. I explained return precautions. She was discharged in stable condition. ED Disposition - Plan for ED Patient: Disposition: Home or Assisted Living Diagnosis: Cholelithiasis Instructions: ED Gallstones with Biliary Colic Prescriptions: Ondansetron [Zofran Odt] 4 mg PO Q8H PRN PRN #10 tablet PRN Reason: Nausea Referrals: Felton Putanm MD [STAFF PHYSICIAN] -
[2019-09-18 11:08] LABS: Absolute Lymphocyte Count 2.09 X10^3/uL (0.83-4.51); Absolute Neutrophil Count 4.5 X10^3/uL (2.0-7.7); Basophil# 0.03 X10^3/uL; Basophil% 0.4 % (0-1); Eosinophils% 1.4 % (0-5); Hematocrit 43.9 % (37-47); Hemoglobin 14.5 g/dL (12.0-15.0); Lymphocyte # 2.09 X10^3/ul (4.0); Lymphocyte % 28.9 % (19-41); Mean Corpuscular Hgb 29.3 pg (27.0-32.0); Mean Corpuscular Volume 88.7 fL (81-99); Monocyte# 0.45 X10^3/uL; Monocyte% 6.2 % (0-10); NRBC Flagged by Analyzer 0 % (0-5); Neutrophil # 4.53 X10^3/uL (2.7-7.7); Neutrophil % 62.8 % (47-70); Platelet Count 342 K/mm3 (150-450); RBC Distribution Width CV 12.7 % (11.6-14.6); Red Blood Count 4.95 M/mm3 (4.2-5.4); White Blood Count 7.2 K/mm3 (4.4-11.0)
[2019-09-18] MEDS: 0.9% Normal Saline 1,000 ML 1000 ML IV (11:08)
[2019-09-18] MEDS: Ondansetron 4 MG/2 ML Vial IV (11:09)
[2019-09-18 11:15] LABS: Internal QC Validated? YES +Cl - CLEAR BKGD; Pregnancy, Serum, hCG Quali. NEGATIVE Negative
[2019-09-18 11:24] LABS: AST(SGOT) 20 U/L (15-37); Alanine Aminotransfer ALT/SGPT 35 U/L (13-56); Alkaline Phosphatase 95 U/L (45-117); Anion Gap 5 (5-15); BUN 19 mg/dL (7-18); BUN/Creat Ratio 24.8 RATIO (10-20); Bilirubin, Direct 0.19 mg/dL (0.00-0.30); Calcium,Total 9.3 mg/dL (8.5-10.1); Chloride 106 mmol/L (98-107); Creatinine, Serum 0.76 mg/dL (0.55-1.02); EST Glomerular Filtration Rate 100 mL/min (>60); Est Glom Filt Rate - Afr Amer 121 mL/min (>60); Estimated Creatinine Clearance 112.91 ml/min; Globulin 4.2 g/dL (2.2-4.2); Glucose 93 mg/dL (74-106); Lipase 91 U/L (73-393); Potassium 4.3 mmol/L (3.5-5.1); Protein, Total 8.2 g/dL (6.4-8.2); Sodium Level 139 mmol/L (136-145)
--- NOTE | 2019-09-18 11:46 | US_ITS ---
STUDY: ABDOMINAL ULTRASOUND - RIGHT UPPER QUADRANT REASON FOR VISIT: Female, 24 years old EPIGASTRIC PAIN SOME VOMITING THIS WEEK AND NAUSEA TECHNIQUE: Ultrasound evaluation of the right upper quadrant was performed with real-time and static hernandez-scale imaging. TECHNICAL QUALITY: Adequate. COMPARISON: Comparison is made with prior sonogram dated March 22, 2010. FINDINGS: Liver: The liver is slightly enlarged and measures 17.6 cm. There is increased echogenicity consistent with fatty infiltration. The bile ducts are within normal limits. There is hepatic color flow. The direction of portal flow is hepatopetal. There is no demonstrated mass lesion. Gallbladder: Normal distended gallbladder. The gallbladder wall measures 2.8 mm. There is a negative sonographic Cline''s sign. There is no pericholecystic fluid. There are multiple echogenic structures within the gallbladder, consistent with multiple gallstones. Common Bile Duct (C.B.D.): The common bile duct measures 2.7 mm. Pancreas: Normal size of the head, body and tail of the pancreas. There is increased echogenicity of the pancreas. There is no demonstrated pancreatic mass or cyst. Right Kidney: Normal size of the right kidney. The right kidney measures 12.2 cm x 5.1 cm x 3.8 cm. Normal renal cortex. The right cortex measures 1.1 cm. There is no demonstrated renal mass or cyst. There is no right hydronephrosis. US/Gallbladder IMPRESSION: Multiple gallstones. Borderline hepatomegaly and fatty infiltration of the liver. Electronically Signed: Juan Pablo Christopher, at 13:07 EDT , Service support ,
[2019-09-18 14:14] VITALS: RESP 18
== END 2019-09-18 14:18 | disposition home or self-care (01) ==
PROVIDERS: Emergency Provider Emergency Medicine; PCP Pediatrics
DX: K80.20 Calculus of gallbladder without cholecystitis without obstruction (principal)
CPT/HCPCS: 76705; 80048; 80076; 83690; 84703; 85025; 96361; 96374; 99283; J7030; A4216; J2405

== ENCOUNTER → 2019-09-26 | Outpatient (CLI) | payer OTHER, SELFPAY ==
[2019-09-25 14:26] VITALS: BMI 38.8
--- NOTE | 2019-09-26 09:04 | ECHOD_ITS ---
Reason For Study: Abn. EKG Procedure This was a 2D Doppler, Color Flow transthoracic echocardiogram. Exam performed in department. Left Ventricle Normal LV size. Left ventricular systolic function is normal. Normal diastology for age. The estimated ejection fraction is 55 %. No regional wall motion abnormalities noted. Right Ventricle Normal RV size. Normal systolic function. Atria Normal left atrium. Normal right atrium. Mitral Valve Normal mitral valve. Tricuspid Valve Normal tricuspid valve. Aortic Valve Normal aortic valve. Trisinus/trileaflet aortic valve. Pulmonic Valve Normal pulmonic valve. Great Vessels Normal aortic root. The pulmonary artery is normal size. Normal inferior vena cava. Pericardium/Pleural No pericardial effusion. MMode/2D Measurements & Calculations LVIDd: 4.3 cm IVSd: 1.0 cm Ao root diam: 2.5 cm LVIDs: 2.9 cm LVPWd: 0.94 cm RVDd: 3.2 cm FS: 33.3 % LAV(MOD-bp): 34.8 ml LA A4 area: 15.8 cm2 RA A4 area: 11.5 cm2 LAV(MOD-bp) Indexed: 15.6 ml/m2 LAV(MOD-sp2): 23.8 ml LAV(MOD-sp4): 36.7 ml Doppler Measurements & Calculations MV E max heriberto: 85.5 cm/sec Lat Peak E' Heriberto: 19.3 cm/sec Med Peak E' Heriberto: 12.5 cm/sec MV A max heriberto: 41.9 cm/sec E/E' lat: 4.4 E/E' med: 6.9 MV E/A: 2.0 Ao V2 max: 136.8 cm/sec LV V1 max: 106.0 cm/sec PA V2 max: 108.5 cm/sec Ao max P.5 mmHg LV V1 max P.5 mmHg TR max heriberto: 185.7 cm/sec TR max P.9 mmHg Interpretation Summary Normal LV size. Left ventricular systolic function is normal. Normal diastology for age. The estimated ejection fraction is 55 %. Structurally normal valves. Ordering Physician: Cj Melissa Referring Physician: Elisa Padilla Performed By: Lilo Phillips RDCS
== END | disposition home or self-care (01) ==
PROVIDERS: PCP Pediatrics; Referring Provider Internal Medicine Cardiovascular Disease; Visit Provider Internal Medicine Cardiovascular Disease
DX: Z01.810 Encounter for preprocedural cardiovascular examination (principal)
CPT/HCPCS: 93306

== ENCOUNTER 2019-09-29 06:57 | Day surgery (SDC) | payer OTHER, SELFPAY ==
[2019-09-19 07:42] VITALS: BMI 39.1
--- NOTE | 2019-09-22 12:26 | EKG12_ITS ---
Test Reason : PRE OP Blood Pressure : / mmHG Vent. Rate : 062 BPM Atrial Rate : 062 BPM P-R Int : 162 ms QRS Dur : 092 ms QT Int : 378 ms P-R-T Axes : -02 059 -13 degrees QTc Int : 383 ms Normal sinus rhythm with sinus arrhythmia Nonspecific T wave abnormality Abnormal ECG Confirmed by AGATA AGUERO, ABBI ([id number]), news copy editor RICHARD MATOS ([id number]) on 09/23/2019 10:58:52 AM Referred By: Felton Putnam Confirmed By:ABBI PARMAR MD
[2019-09-24 08:29] LABS: Internal QC Validated? YES +Cl - CLEAR BKGD; Pregnancy, Urine Negative Negative
[2019-09-24 08:32] VITALS: BP 128/66; PULSE 90; RESP 16; TEMP 36.8; O2SAT 99; BMI 38.5
[2019-09-24] MEDS: Lactated Ringers 1,000 ML 100 ML IV (08:43)
--- NOTE | 2019-09-24 09:58 | HP.PCM_ITS ---
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 Allergies No Known Allergies Allergy (Verified 09/19/19 07:46) Medications Acetaminophen [Tylenol Extra Strength] 500 mg PO PRN PRN 10/15/18 [History Confirmed 09/19/19] Ondansetron [Zofran Odt] 4 mg PO Q8H PRN PRN #10 tab 09/18/19 [Rx Confirmed 09/19/19] Sertraline HCl [Zoloft] 50 mg PO DAILY 09/18/19 [History Confirmed 09/19/19] PFSH Medical History Anxiety and depression (Acute) Asthma (Acute) Back pain (Acute) Frequent headaches (Acute) Intradermal nevus (Acute) Seasonal allergies (Acute) UTI (urinary tract infection) (Acute) Vision problems (Acute) Surgical History Cavernous hemangioma (Acute) History of excision of lesion (Acute) Family History Mother Cervical cancer Grandmother Asthma Hypertension Grandmother Diabetes Skin cancer Lung cancer Other Yjppqsu-Dckrx-Ugtsh disease Depression (emotion) Heart disease Social History (Updated 09/19/19 @ 07:[address] Felton Putnam MD) Smoking Status: Never smoker alcohol intake: current substance use type: does not use additional social history: DOES NOT USE ASPIRIN DOES USE IBUPROFEN NEEDED HPI HPI HPI: MEGHANN KAPOOR, is a 24 F who presents to the office today for surgical consultation regarding 3 separate episodes of epigastric pain postprandially. Her most recent episode required an ER visit on September 18, 2019. She had had epigastric pain nausea and vomiting. Testing was pursued including a gallbladder ultrasound showing gallbladder wall 2.8 mm no pericholecystic fluid but multiple gallstones were identified. There is fatty change to the liver. Common bile duct measured 2.7 mm. Her white blood cell count and liver function tests were normal. [facility] Imaging Services [address] [place] [id number] Gallbladder MR#: [id number] Name: MEHGANN KAPOORRep #:[id number] : 1995F 24 From: Juan Pablo Christopher MD PCP:Dr. Elisa Padilla MD Status:REG ER Study:Gallbladder Date of Exam:09/18/19 Exam#[id number] Ordering Dr: German Calero MD STUDY: ABDOMINAL ULTRASOUND - RIGHT UPPER QUADRANT REASON FOR VISIT: Female, 24 years old EPIGASTRIC PAIN SOME VOMITING THIS WEEK AND NAUSEA TECHNIQUE: Ultrasound evaluation of the right upper quadrant was performed with real-time and static hernandez-scale imaging. TECHNICAL QUALITY: Adequate. COMPARISON: Comparison is made with prior sonogram dated March 22, 2010. FINDINGS: Liver: The liver is slightly enlarged and measures 17.6 cm. There is increased echogenicity consistent with fatty infiltration. The bile ducts are within normal limits. There is hepatic color flow. The direction of portal flow is hepatopetal. There is no demonstrated mass lesion. Gallbladder: Normal distended gallbladder. The gallbladder wall measures 2.8 mm. There is a negative sonographic Cline''s sign. There is no pericholecystic fluid. There are multiple echogenic structures within the gallbladder, consistent with multiple gallstones. Common Bile Duct (C.B.D.): The common bile duct measures 2.7 mm. Pancreas: Normal size of the head, body and tail of the pancreas. There is increased echogenicity of the pancreas. There is no demonstrated pancreatic mass or cyst. Right Kidney: Normal size of the right kidney. The right kidney measures 12.2 cm x 5.1 cm x 3.8 cm. Normal renal cortex. The right cortex measures 1.1 cm. There is no demonstrated renal mass or cyst. There is no right hydronephrosis. US/Gallbladder IMPRESSION: Multiple gallstones. Borderline hepatomegaly and fatty infiltration of the liver. Electronically Signed: Juan Pablo Christopher, at 13:07 EDT , Service support , HPI HPI HPI: MEGHANN KAPOOR, is a 24 F who presents to the office today for Exam Const General: cooperative, comfortable, no acute distress Nutritional Appearance: obese morbidly obese Orientation: alert, awake, oriented x3 HENMT Head: normal to inspection Eyes General: appearance normal, both eyes and all related structures Resp Effort & Inspection: normal respiratory effort Auscultation: clear to auscultation bilaterally Cardio Rate: regular rate Rhythm: regular rhythm GI Palpation: soft Auscultation: normal bowel sounds Neuro General: alert, awake Cognition: normal cognition Extrem General: no calf tenderness Psych Affect: normal affect Assessment & Plan Problems 1. Calculus of gallbladder with chronic cholecystitis without obstruction K80.10 Plan 24-year-old female now with 3 separate episodes of postprandial epigastric pain 2 of which required emergency room visits. This all correlates well with biliary colic, chronic cholecystitis cholelithiasis. She has had 3 pregnancies and 3 deliveries. She has fatty food intolerance. I recommended the patient a laparoscopic cholecystectomy with selective cholangiography and I have discussed the technique, benefit, risk, alternatives. She has had an opportunity to ask and have questions answered. No guarantees of success were offered. She is aware that she is presenting via a Covid-19 pandemic. The [facility] is reporting a low local incidence. We will schedule and expedite her care. I have asked her to be on a low-fat diet until we can perform the procedure. The patient does take some ckfc-csi-dbchoqt omeprazole and I have asked her to stay on that until we complete the procedure as well. Cc: Dr. Elisa Putnam M.D., F.A.C.S. Coding Level of Care Code Off vis,new,level 3 Diagnoses Calculus of gallbladder with chronic cholecystitis without obstruction K80.10 ??Cholelithiasis location: gallbladder ??Biliary obstruction: without biliary obstruction I have re-examined the patient. There are no clinical changes since date of exam. Procedure Criteria Procedure Type: Elective COVID Risk Discussion: The surgeon/proceduralist and patient have discussed in detail the risk of exposure to and/or potential harm posed by the COVID-19 virus with having a surgery/procedure at this time versus the risk of delaying the surgery/procedure. It is not possible to know either the risk of delaying the surgery or procedure or chance of getting an infection with perfect accuracy, but a joint decision was made between the patient and the surgeon/proceduralist to proceed at this time with the scheduled surgery/procedure as indicated on the consent form.
[2019-09-24] MEDS: Bupivacaine Mpf 0.5% 30 ML VIAL (10:20)
[2019-09-25 14:26] VITALS: BMI 38.8
[2019-09-29] VITALS (7 sets, daily range): BP systolic 120–136; BP diastolic 73–86; PULSE 55–95; RESP 16–18; TEMP 36.3–37.1; O2SAT 93–100; BMI 38.8
--- NOTE | 2019-09-29 | GALL_PTH ---
PATIENT: MEGHANN KAPOOR [place] [facility] [id number] AGE/SX: 24/F ROOM: RE09/29/[address]: Dr. Felton Putnam MD : 1995 BED: DIS: 09/29/2019 SPEC #: [id number] RECD: 09/29/19 12:03 STATUS: JESUS JACQUELIN #: [id number] BRAYAN: 09/29/19 00:[address]: Felton Putnam DEPT: SURGICAL PATHOLOGY RECD BY: Miller Sow ENTERED: 09/29/19 12:03 SP TYPE: ISAAC AYALA DR: MD Dr. Elisa Holman MD Tissues: Gallbladder, NOS Procedures: Surgery Specimen Level III HEADER OPERATION: Laparoscopic cholecystectomy with IOC PRE-OP DIAGNOSIS: Cholelithiasis, chronic cholecystitis TISSUE SUBMITTED: Gallbladder MICROSCOPIC DIAGNOSIS Gallbladder, cholecystectomy: Chronic cholecystitis, cholelithiasis and cholesterolosis. SJ:lena 09/30/19 MICROSCOPIC DESCRIPTION Slides are reviewed. GROSS DESCRIPTION Received is one container labeled with the patient's name and designated gallbladder. The specimen consists of a gallbladder measuring 7 cm in length and up to 3 cm in diameter. The external surface is pink-mireles, smooth and glistening for the most part. Focally it is granular, hemorrhagic and contains cautery artifact. The gallbladder contains thick, yellowish-green mucoid bile and multiple yellowish-green mulberry stones measuring in aggregate 2.5 x 2 x 0.5 cm and 0.5 cm in greatest dimension. The mucosa also shows several yellowish streaks consistent with cholesterolosis. The gallbladder wall measures up to 0.3 cm in thickness. High Pressure Firer sections from the gallbladder and the cystic duct are submitted in one cassette. / BOB:lena 09/29/19 TC:3 CPT: 61148
--- NOTE | 2019-09-29 07:17 | PCM.HP.BLA ---
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 Allergies No Known Allergies Allergy (Verified 09/19/19 07:46) Medications Acetaminophen [Tylenol Extra Strength] 500 mg PO PRN PRN 10/15/18 [History Confirmed 09/19/19] Ondansetron [Zofran Odt] 4 mg PO Q8H PRN PRN #10 tab 09/18/19 [Rx Confirmed 09/19/19] Sertraline HCl [Zoloft] 50 mg PO DAILY 09/18/19 [History Confirmed 09/19/19] PFSH Medical History Anxiety and depression (Acute) Asthma (Acute) Back pain (Acute) Frequent headaches (Acute) Intradermal nevus (Acute) Seasonal allergies (Acute) UTI (urinary tract infection) (Acute) Vision problems (Acute) Surgical History Cavernous hemangioma (Acute) History of excision of lesion (Acute) Family History Mother Cervical cancer Grandmother Asthma Hypertension Grandmother Diabetes Skin cancer Lung cancer Other Dkrnliw-Cmwvo-Qeorz disease Depression (emotion) Heart disease Social History (Updated 09/19/19 @ 07:[address] Felton Putnam MD) Smoking Status: Never smoker alcohol intake: current substance use type: does not use additional social history: DOES NOT USE ASPIRIN DOES USE IBUPROFEN NEEDED HPI HPI HPI: MEGHANN KAPOOR, is a 24 F who presents to the office today for surgical consultation regarding 3 separate episodes of epigastric pain postprandially. Her most recent episode required an ER visit on September 18, 2019. She had had epigastric pain nausea and vomiting. Testing was pursued including a gallbladder ultrasound showing gallbladder wall 2.8 mm no pericholecystic fluid but multiple gallstones were identified. There is fatty change to the liver. Common bile duct measured 2.7 mm. Her white blood cell count and liver function tests were normal. [facility] Imaging Services [address] [place] [id number] Gallbladder MR#: [id number] Name: MEGHANN KAPOORRep #:[id number] : 1995 24 From: Juan Pablo Christopher MD PCP:Dr. Elisa Padilla MD Status:REG ER Study:Gallbladder Date of Exam:09/18/19 Exam#[id number] Ordering Dr: German Calero MD STUDY: ABDOMINAL ULTRASOUND - RIGHT UPPER QUADRANT REASON FOR VISIT: Female, 24 years old EPIGASTRIC PAIN SOME VOMITING THIS WEEK AND NAUSEA TECHNIQUE: Ultrasound evaluation of the right upper quadrant was performed with real-time and static henrandez-scale imaging. TECHNICAL QUALITY: Adequate. COMPARISON: Comparison is made with prior sonogram dated March 22, 2010. FINDINGS: Liver: The liver is slightly enlarged and measures 17.6 cm. There is increased echogenicity consistent with fatty infiltration. The bile ducts are within normal limits. There is hepatic color flow. The direction of portal flow is hepatopetal. There is no demonstrated mass lesion. Gallbladder: Normal distended gallbladder. The gallbladder wall measures 2.8 mm. There is a negative sonographic Cline''s sign. There is no pericholecystic fluid. There are multiple echogenic structures within the gallbladder, consistent with multiple gallstones. Common Bile Duct (C.B.D.): The common bile duct measures 2.7 mm. Pancreas: Normal size of the head, body and tail of the pancreas. There is increased echogenicity of the pancreas. There is no demonstrated pancreatic mass or cyst. Right Kidney: Normal size of the right kidney. The right kidney measures 12.2 cm x 5.1 cm x 3.8 cm. Normal renal cortex. The right cortex measures 1.1 cm. There is no demonstrated renal mass or cyst. There is no right hydronephrosis. US/Gallbladder IMPRESSION: Multiple gallstones. Borderline hepatomegaly and fatty infiltration of the liver. Electronically Signed: Juan Pablo Christopher, at 13:07 EDT , Service support , HPI HPI HPI: MEGHANN KAPOOR, is a 24 F who presents to the office today for Exam Const General: cooperative, comfortable, no acute distress Nutritional Appearance: obese morbidly obese Orientation: alert, awake, oriented x3 HENMT Head: normal to inspection Eyes General: appearance normal, both eyes and all related structures Resp Effort & Inspection: normal respiratory effort Auscultation: clear to auscultation bilaterally Cardio Rate: regular rate Rhythm: regular rhythm GI Palpation: soft Auscultation: normal bowel sounds Neuro General: alert, awake Cognition: normal cognition Extrem General: no calf tenderness Psych Affect: normal affect Assessment & Plan Problems 1. Calculus of gallbladder with chronic cholecystitis without obstruction K80.10 Plan 24-year-old female now with 3 separate episodes of postprandial epigastric pain 2 of which required emergency room visits. This all correlates well with biliary colic, chronic cholecystitis cholelithiasis. She has had 3 pregnancies and 3 deliveries. She has fatty food intolerance. I recommended the patient a laparoscopic cholecystectomy with selective cholangiography and I have discussed the technique, benefit, risk, alternatives. She has had an opportunity to ask and have questions answered. No guarantees of success were offered. She is aware that she is presenting via a Covid-19 pandemic. The [facility] is reporting a low local incidence. We will schedule and expedite her care. I have asked her to be on a low-fat diet until we can perform the procedure. The patient does take some xcup-oyb-dgrjidf omeprazole and I have asked her to stay on that until we complete the procedure as well. Cc: Dr. Elisa Putnam M.D., F.A.C.S. Coding Level of Care Code Off vis,new,level 3 Diagnoses Calculus of gallbladder with chronic cholecystitis without obstruction K80.10 ??Cholelithiasis location: gallbladder ??Biliary obstruction: without biliary obstruction The patient was previously scheduled for surgery on September 24, 2019. She had had a EKG requested by anesthesiology preoperatively. This suggested T wave inversions. Recommendations were to have the procedure canceled by anesthesia. The patient has seen Dr. Cj Melissa as an outpatient. An echocardiogram has been obtained which was not remarkable. The patient has been cleared now to proceed with her laparoscopic cholecystectomy with selective cholangiography. Fortunately her health has been stable in the brief interim. She is aware of the technique, benefit, risk, alternatives. We will proceed as noted Procedure Criteria Procedure Type: Elective COVID Risk Discussion: The surgeon/proceduralist and patient have discussed in detail the risk of exposure to and/or potential harm posed by the COVID-19 virus with having a surgery/procedure at this time versus the risk of delaying the surgery/procedure. It is not possible to know either the risk of delaying the surgery or procedure or chance of getting an infection with perfect accuracy, but a joint decision was made between the patient and the surgeon/proceduralist to proceed at this time with the scheduled surgery/procedure as indicated on the consent form.
--- NOTE | 2019-09-29 07:20 | DCINST_ITS ---
Discharge Diet: Light diet - advance as tolerated - if you have questions about your diet instructions, please talk to you doctor. Discharge Activity: May Not Drive - for 3-5 days or while taking narcotic pain medicine. May shower in (days): 1 Lifting Restrictions: 10 pounds Call your doctor if your incision/area has: Continuous Slow Oozing, Sudden Increased Bleeding, Increased Pain/ Swelling, Increased Redness, Foul Smelling Discharge Call your doctor if you observe: Fever of 101 or Higher Suture Line Care: Avoid Pulling/Pushing, Avoid Pinching/Bending Additional Dressing/Incision Instructions:: Change or remove dressing in 4 days. Leave steri-strips in place for 1 week. Allergies/Adverse Reactions: Allergies No Known Allergies Allergy (Verified 09/25/19 14:26) Medications to take at Discharge Acetaminophen [Tylenol Extra Strength] 500 mg PO PRN PRN 10/15/18 Ondansetron [Zofran Odt] 4 mg PO Q8H PRN PRN #10 tab 09/18/19 Albuterol Inhaler [Ventolin Hfa (SP)] 1 - 2 puff INHALATION Q4H PRN PRN 09/19/19 Omeprazole Magnesium [Prilosec Otc] 20 mg PO DAILY 09/19/19 sertraline 50 mg tablet 50 mg PO QHS 09/25/19 Primary Care Physician: Elias Padilla MD [Primary Care Provider] - Test Results: Test results from this visit will be discussed in further detail at your follow- up appointment, if applicable. Please Follow Up With: Felton Putnam MD - [phone] When: Call to make an appointment to be seen in about 10 days.
[2019-09-29 07:34] LABS: Internal QC Validated? YES +Cl - CLEAR BKGD; Pregnancy, Urine Negative Negative
[2019-09-29] MEDS: Lactated Ringers 1,000 ML 15 ML IV (07:55)
--- NOTE | 2019-09-29 09:35 | RAD_ITS ---
STUDY: INTRAOPERATIVE CHOLANGIOGRAM. REASON FOR EXAM: Female, 24 years old. CHOLANGIOGRAM FLUOROSCOPY TIME (if supplied): ( 19 seconds ) minutes/seconds. A single loop of 12 images was obtained. TECHNIQUE: An intraoperative cholangiogram was performed by the surgeon. Imaging was submitted. COMPARISON: None. FINDINGS: The common bile duct is not dilated. No intraluminal filling defect is seen. There is free flow of contrast into the duodenum. RAD/Cholangiogram/ O R,Initial IMPRESSION: Unremarkable intraoperative cholangiogram. Electronically Signed: Juan Pablo Christopher, at 14:36 EDT , Service support ,
--- NOTE | 2019-09-29 10:23 | PCM.OPRPT ---
Problem List (1) Cholelithiasis with chronic cholecystitis Status: Chronic Qualifiers: Report of Operation Date of Procedure: 09/29/19 Pre-Operative Diagnosis: Chronic cholecystitis cholelithiasis Post-Operative Diagnosis: Same Surgery/Procedure Performed:: Laparoscopic cholecystectomy with cholangiograms Description of Surgical Findings:: 24-year-old female. She presents with intermittent colicky epigastric right upper quadrant pain particularly postprandially. She has been identified as having multiple gallstones. Because of an abnormal preop EKG ordered by anesthesiologist she then was referred to cardiology had a echocardiogram which was not felt to be remarkable. The patient now presents after previously being canceled by anesthesia for her surgery to undergo her laparoscopic cholecystectomy. She was taken to the operating room and placed supine on the table and underwent general endotracheal intubation anesthesia. Ancef 3 g were given intravenously weight based upon body weight. The abdomen sterilely prepped and draped. 0.5% Marcaine was used as a local anesthetic. A total of 30 cc was used. Skin sites were pre-anesthetized. A vertical infraumbilical incision was created holding sutures of 0 Vicryl placed varies needle inserted saline drop test performed. The abdomen was insufflated with CO2 to a pressure of 10 mmHg pressure and then that was increased to 12 mmHg pressure. A 10 mm trocar was inserted. 10 mm laparoscope inserted. No evidence of any trocar injuries. Under direct visitation 5 Padilla ports were placed in the epigastric right upper quadrant right lateral upper quadrant. The gallbladder was distracted. Blunt dissection was instituted the infundibulum until clearly the cystic duct and cystic artery were identified. Hemo-lock clip was placed proximally and distally on the cystic artery which was then transected. The critical view had been achieved prior to this. A hemo-lock clip was placed on the cystic duct stump incision made in the cystic duct and through a 14-gauge Angiocath a cholangiogram catheter was inserted. Fluoroscopically control cholangiograms were obtained demonstrating normal ductal anatomy and free flow into the small bowel. The cholangiogram catheter was removed 2 hemo-lock clips were placed on the cystic duct stump. Then the cystic duct was transected. The gallbladder was tediously dissected free from the liver bed. Where needed additional hemo-lock clips were used to assure hemostasis. The gallbladder was completely released the liver bed was inspected was noted to be hemostatic. The right upper quadrant irrigated and aspirated free of excess fluid. The gallbladder was placed in a retrieval bag. The liver bed again inspected and was hemostatic. The gallbladder was then exited at the umbilicus by slight fascial enlargement. The remaining trochars were removed. Is of note that the abdomen was allowed to deflate through the antiviral valve. The fascia at the umbilicus approximate interrupted 0 Vicryl [id number] suture. Skin edges approximated with interrupted 4-0 Monocryl subdermal stitches. Steri-Strips Telfa and OpSite dressings applied. Sponge and instrument and needle counts were reported to the surgeon to be correct. Blood loss was minimal. Specimen gallbladder. Drains none. Blood loss minimal. Felton Putnam M.D., F.A.C.S. Type of Anesthesia:: General Anesthesiologist: Jaren Perez
[2019-09-29] MEDS: Lactated Ringers 1,000 ML 100 ML IV (12:14)
[2019-09-29] MEDS: HYDROcodone Bitartrate/Apap 5/325 Tablet PO (12:25)
== END 2019-09-29 13:19 | disposition home or self-care (01) ==
LOC: SDC 06:57 → AC 06:59
PROVIDERS: Anesthesiology; PCP Pediatrics; Referring Provider Surgery; Visit Provider Surgery
PROC: (CPT 47610; principal; 2019-09-29 08:45)
DX: K80.10 Calculus of gallbladder with chronic cholecystitis without obstruction (principal); J45.909 Unspecified asthma, uncomplicated; F41.9 Anxiety disorder, unspecified; F32.9 Major depressive disorder, single episode, unspecified; E66.01 Morbid (severe) obesity due to excess calories; K21.9 Gastro-esophageal reflux disease without esophagitis; Z68.38 Body mass index [BMI] 38.0-38.9, adult; Z79.51 Long term (current) use of inhaled steroids; Z79.899 Other long term (current) drug therapy
CPT/HCPCS: 47563; 74300; 76000; 81025; 87635; 88304; 93005; G2023; J7120; J2405; U0003

== ENCOUNTER 2019-12-15 19:16 | Emergency (ER) | payer OTHER, SELFPAY ==
[2019-11-04 08:31] VITALS: BMI 38.8
[2019-12-15 19:17] VITALS: BP 144/83; PULSE 87; RESP 18; TEMP 35.5; O2SAT 99; BMI 38.8
[2019-12-15] MEDS: 0.9% Normal Saline 1,000 ML 999 ML IV (20:30)
[2019-12-15] MEDS: Ketorolac 30 MG/ML Syringe IV (20:31)
[2019-12-15] MEDS: Metoclopramide 10 MG/2 ML Vial IV (20:31)
[2019-12-15] MEDS: DiphenhydrAMINE 50 MG/ML Syringe 25 MG IV (20:33)
--- NOTE | 2019-12-15 21:36 | ED.VIS.GEN ---
History of Present Illness Chief Complaint: Headache Informant: Patient Onset: Weeks - 1 week Timing: Intermittent Current Severity: Moderate Maximum Severity: Moderate Narrative: Patient presents with intermittent headache for the past 1 week. She will also feel dizzy and lightheaded at times. She does have a history of headaches but states usually does not last this long. She describes the pain as being in various different locations around her head. Tonight it seems to be more sharp pain on the right side of her head. She denies fever or chills. She denies recent head injury. She did take Tylenol earlier in the day. - Past Medical History (1) Anxiety and depression Status: Chronic (2) Asthma Status: Chronic (3) Frequent headaches Status: Chronic Past Medical History - Allergies and Home Meds Allergies/Adverse Reactions: Allergies No Known Allergies Allergy (Verified 12/15/19 19:16) Primary Care Physician: Elisa Padilla MD [Primary Care Provider] - As Needed Prior records reviewed: Yes Surgical History: no surgical history Lives: With Family Smoking Status: Never smoker Review of Systems General: Denies: Chills, Fever Eyes: Denies: Visual changes - bilaterally ENT: Denies: Bilateral ear pain, Sore throat Cardiovascular: Denies: Chest pain Respiratory: Denies: Dyspnea, Cough Gastrointestinal: Reports: Nausea. Denies: Abdominal pain, Vomiting, Diarrhea Musculoskeletal: Denies: Back pain, Extremity Pain Skin: Denies: Rash Neurological: Reports: Headache. Denies: Weakness, Parasthesia Hematologic: Denies: Easy bruising, Easy bleeding Allergy: Denies: Uticaria Physical Exam Vital Signs/Narrative: Vital Signs Temp Pulse Resp BP Pulse Ox 12/15/19 19:17 96 F L 87 18 144/83 H 99 Inital Vital Signs reviewed: Yes General: Well nourished, Well developed Head: Normocephalic ENT: Moist mucous membranes Neck: Supple, - - No meningismus Cardiovascular: Regular rate, Regular rhythm Respiratory: No distress, CTA bilaterally Abdomen: Soft, Nontender Extremities: Nontender Skin: Normal color Neurological: Alert, Oriented x3, Normal Strength, Normal Sensation Psychological: Normal affect Diagnostic/Tx/Re-eval - Medical Decision Making Patient was given IV fluids, Toradol, Reglan, and Benadryl. On repeat evaluation she states headache is improved. She will be discharged home with family at this time. ED Disposition - Plan for ED Patient: Disposition: Home or Assisted Living Diagnosis: Migraine Instructions: ED, Migraine (Classical) Referrals: Elisa Padilla MD [Primary Care Provider] - As Needed
[2019-12-15 21:50] VITALS: BP 128/79; PULSE 84; RESP 18; O2SAT 98
== END 2019-12-15 21:51 | disposition home or self-care (01) ==
PROVIDERS: Emergency Provider Emergency Medicine; PCP Pediatrics
DX: G43.909 Migraine, unspecified, not intractable, without status migrainosus (principal); J45.909 Unspecified asthma, uncomplicated
CPT/HCPCS: 96361; 96374; 96375; 99283; J7030

== ENCOUNTER → 2020-03-08 09:00 | Outpatient (CLI) | payer OTHER, SELFPAY ==
--- NOTE | 2020-03-08 09:03 | US_ITS ---
STUDY: SUPERFICIAL ULTRASOUND - RIGHT FOOT REASON FOR EXAM: Female, 24 years old. Rt foot lumps x2 TECHNIQUE: A superficial ultrasound was performed with real-time and static hernandez-scale imaging. COMPARISON: None. FINDINGS: Imaging of the dorsal aspect of the proximal foot at the level of the ankle was performed. There is a 4 mm x 2 mm x 1 mm fluid collection. Adjacent to this, there is a 1.6 cm x 1 cm x 0.3 cm fluid collection with the debris within it. This may represent posttraumatic hematoma or seromas. US/Ext Non Vasc Limited/Soft Tiss IMPRESSION: The palpable abnormalities correspond to 2 small fluid collections as described. Electronically Signed: Juan Pablo Christopher, at 12:40 EST , Service support ,
== END ==
LOC: US 09:02
PROVIDERS: Referring Provider Nurse Practitioner Family; Visit Provider Nurse Practitioner Family
DX: M79.671 Pain in right foot (principal); R22.41 Localized swelling, mass and lump, right lower limb
CPT/HCPCS: 76882

== ENCOUNTER → 2021-11-24 | Outpatient (CLI) | payer OTHER, SELFPAY ==
[2021-12-01 17:23] LABS: HPV Reflexed? NOT INDICATED
== END | disposition home or self-care (01) ==
PROVIDERS: Visit Provider Student in an Organized Health Care Education/Training Program
DX: Z12.4 Encounter for screening for malignant neoplasm of cervix (principal)
CPT/HCPCS: 88175; G0145

== ENCOUNTER → 2021-12-09 | Outpatient (CLI) | payer OTHER, SELFPAY ==
--- NOTE | 2021-12-09 14:48 | US_ITS ---
STUDY: ULTRASOUND BREAST - LEFT REASON FOR EXAM: Female, 26 years old. Pain in the left breast. TECHNIQUE: Axial and longitudinal images of the LEFT breast were performed with a high resolution ultrasound transducer. # OF IMAGES: 54 COMPARISON: None. FINDINGS: LEFT Breast: The entire left breast was examined with ultrasound. There is a 7 mm x 7 mm x 5 mm well-defined hypoechoic nodule with central increased echotexture. This is suggestive of a small lymph node. This is at the 11 o''clock position of breast for sometime and some nipple. A short term sonographic follow-up is recommended. US/Breast Limited Unilateral IMPRESSION: 7 mm x 7 mm x 5 mm well-defined hypoechoic nodule with central increased echotexture at the 11 o''clock position of the breast at 4 cm from nipple. A repeat sonogram in 4 months is recommended. ASSESSMENT CATEGORY: BIRADS Category 3: Probably Benign - Short-Interval Follow-up Suggested. A letter regarding these results will be sent to the patient by the facility within 30 days. Electronically Signed: Juan Pablo Christopher MD at 9:47 EDT ,
== END | disposition home or self-care (01) ==
LOC: OPBI 14:46
PROVIDERS: Referring Provider Student in an Organized Health Care Education/Training Program; Visit Provider Student in an Organized Health Care Education/Training Program
DX: N64.4 Mastodynia (principal)
CPT/HCPCS: 76642

== ENCOUNTER → 2022-01-17 | Outpatient (CLI) | payer OTHER, SELFPAY ==
--- NOTE | 2022-01-17 12:30 | BRBX_PTH ---
PATIENT: MEGHANN KAPOOR LOC: [facility] U#:[id number] AGE/SX: 26/F ROOM: RE01/17/[address]: Dr. Felton Putnam MD : 1995 BED: DIS: 01/17/2022 SPEC #: [id number] RECD: 01/17/22 15:50 STATUS: JESUS ROPER #: [id number] BRAYAN: 01/17/22 12:[address]: Felton Putnam DEPT: SURGICAL PATHOLOGY RECD BY: Maureen Ontiveros Tissues: Left breast, NOS Procedures: Surgery Specimen Level IV HEADER OPERATION: Left breast biopsy PRE-OP DIAGNOSIS: Left breast mass TISSUE SUBMITTED: Left breast tissue FIXATION TIME: 31 hours MICROSCOPIC DIAGNOSIS Left breast tissue, core biopsy: Hyalinized fibroadenoma. Negative for atypia or malignancy. See comment. BOB:lena 01/19/2020 COMMENT Correlation with clinical, radiologic findings and appropriate follow up are necessary. MICROSCOPIC DESCRIPTION Slides are reviewed. GROSS DESCRIPTION Received in fixative is one container labeled with the patient's name and designated left breast. The specimen consists of multiple elongated fragments of mireles-yellow fibroadipose tissue mixed with blood clots that in aggregate measure 1.5 x 0.7 x 0.1 cm. The entire specimen is submitted in one cassette. / SJ:rg 01/18/2022 TC:1 CPT: 17572
== END | disposition home or self-care (01) ==
PROVIDERS: Visit Provider Surgery
DX: D24.2 Benign neoplasm of left breast (principal)
CPT/HCPCS: 88305

== ENCOUNTER → 2022-01-23 | Outpatient (CLI) | payer OTHER, SELFPAY ==
--- NOTE | 2022-01-23 10:54 | US_ITS ---
STUDY: ULTRASOUND BREAST - LEFT REASON FOR EXAM: Female, 26 years old. Clip placement following ultrasound-guided breast biopsy. TECHNIQUE: Axial and longitudinal images of the LEFT breast were performed with a high resolution ultrasound transducer. # OF IMAGES: 13 COMPARISON: Comparison is made with prior sonogram dated 12/09/2021. FINDINGS: LEFT Breast: A tissue clip marker is seen adjacent to the 9 mm x 7 mm x 7 mm nodular density at the 11 o''clock position of the breast at 4 cm from nipple. US/Breast Limited Unilateral IMPRESSION: IMPRESSION: Essentially adjacent to the 9 mm x 7 mm x 7 mm hypoechoic nodule at the 11 o''clock position of the breast at 4 cm from nipple. ASSESSMENT CATEGORY: BIRADS Category 2: Benign. A letter regarding these results will be sent to the patient by the facility within 30 days. Electronically Signed: Juan Pablo Christopher MD at 12:01 EDT ,
== END | disposition home or self-care (01) ==
LOC: OPUS 10:53
PROVIDERS: Referring Provider Surgery; Visit Provider Surgery
DX: R92.8 Other abnormal and inconclusive findings on diagnostic imaging of breast (principal)
CPT/HCPCS: 76642

== ENCOUNTER → 2022-03-14 | Outpatient (CLI) | payer OTHER, SELFPAY ==
--- NOTE | 2022-03-14 14:05 | RAD_ITS ---
STUDY: X-RAY - LEFT SHOULDER REASON FOR EXAM: Female, 26 years old. left shoulder pain TECHNIQUE: 4 view(s) of the shoulder. COMPARISON: None. FINDINGS: Normal glenohumeral articulation. Normal acromioclavicular joint. Normal acromion. Normal humeral head and visualized proximal humerus. The soft tissue structures are unremarkable. Normal visualized pulmonary apex. RAD/Shoulder min 2 Views IMPRESSION: Normal x-ray examination of the shoulder. Electronically Signed: Sarkis Calle MD at 23:28 EST ,
[2022-03-14 15:03] LABS: Absolute Lymphocyte Count 2.41 X10^3/uL (0.83-4.51); Absolute Neutrophil Count 5.2 X10^3/uL (2.0-7.7); Basophil# 0.02 X10^3/uL; Basophil% 0.2 % (0-1); Eosinophil# 0.49 X10^3/uL; Eosinophils% 5.6 % (0-5); Hematocrit 45.3 % (37-47); Hemoglobin 15.3 g/dL (12.0-15.0); Lymphocyte # 2.41 X10^3/ul (0.83-4.51); Lymphocyte % 27.8 % (19-41); Mean Corp Hgb Conc 33.8 g/dL (32-36); Mean Corpuscular Hgb 30.3 pg (27.0-32.0); Mean Corpuscular Volume 89.7 fL (81-99); Mean Platelet Vol. 10.9 fl (6.2-12.0); Monocyte# 0.56 X10^3/uL; Monocyte% 6.5 % (0-10); NRBC Flagged by Analyzer 0 % (0-5); Neutrophil # 5.16 X10^3/uL (2.7-7.7); Neutrophil % 59.4 % (47-70); Platelet Count 385 K/mm3 (150-450); RBC Distribution Width CV 12.5 % (11.6-14.6); RBC Distribution Width SD 41.1 fl (35.1-43.9); Red Blood Count 5.05 M/mm3 (4.2-5.4); White Blood Count 8.7 K/mm3 (4.4-11.0)
[2022-03-14 15:25] LABS: Vitamin D,25 Hydroxy 17.3 ng/mL
[2022-03-14 15:39] LABS: ALB/GLOB Ratio 0.9 RATIO (0.9-2.4); AST(SGOT) 15 U/L (15-37); Alanine Aminotransfer ALT/SGPT 32 U/L (13-56); Albumin, Serum 3.6 g/dL (3.2-5.0); Alkaline Phosphatase 79 U/L (45-117); Anion Gap 8 (5-15); BUN 14 mg/dL (7-18); BUN/Creat Ratio 17.4 RATIO (10-20); Calcium,Total 9.1 mg/dL (8.5-10.1); Chloride 106 mmol/L (98-107); Cholesterol 173 mg/dL (200); Creatinine, Serum 0.81 mg/dL (0.55-1.02); EST Glomerular Filtration Rate 92 mL/min (>60); Est Glom Filt Rate - Afr Amer 112 mL/min (>60); Globulin 4.1 g/dL (2.2-4.2); Glucose 95 mg/dL (74-106); High Density Lipoprotein 51 mg/dL; Potassium 4.3 mmol/L (3.5-5.1); Protein, Total 7.7 g/dL (6.4-8.2); Sodium Level 137 mmol/L (136-145); T4 Free Direct 0.98 ng/dL (0.76-1.46); Thyroid Stim Hormone (TSH) 1.02 uIU/mL (0.358-3.74); Triglycerides 56 mg/dL; Very Low Density Lipoprotein 11 mg/dL (5-40)
== END | disposition home or self-care (01) ==
PROVIDERS: PCP Internal Medicine; Referring Provider Physician Assistant; Visit Provider Physician Assistant
DX: M25.512 Pain in left shoulder (principal); F41.9 Anxiety disorder, unspecified; F32.9 Major depressive disorder, single episode, unspecified; R53.83 Other fatigue; E66.9 Obesity, unspecified; E56.9 Vitamin deficiency, unspecified
CPT/HCPCS: 36415; 73030; 80053; 80061; 82306; 84439; 84443; 85025

== ENCOUNTER → 2022-04-28 | Outpatient (CLI) | payer OTHER, SELFPAY ==
--- NOTE | 2022-04-28 09:28 | US_ITS ---
STUDY: SUPERFICIAL ULTRASOUND - LEFT SHOULDER REGION. REASON FOR EXAM: Female, 26 years old. Lump left shoulder TECHNIQUE: A superficial ultrasound was performed with real-time and static hernandez-scale imaging. COMPARISON: None. FINDINGS: Targeted imaging of the left shoulder region was obtained. No sonographic abnormality is seen. US/Ext Non Vasc Limited/Soft Tiss IMPRESSION: No sonographic abnormality is seen. Electronically Signed: Juan Pablo Christopher MD at 14:21 EST ,
--- NOTE | 2022-04-28 09:32 | US_ITS ---
STUDY: ULTRASOUND BREAST - LEFT REASON FOR EXAM: Female, 26 years old. Follow-up of left breast biopsy. TECHNIQUE: Axial and longitudinal images of the LEFT breast were performed with a high resolution ultrasound transducer. # OF IMAGES: 8 COMPARISON: Comparison is made with prior ultrasound of the left breast dated 01/23/2022. FINDINGS: LEFT Breast: A tissue clip marker is once again seen adjacent to the 7 mm x 6 mm x 7 mm hypoechoic solid nodule at 11 o''clock position breast at 4 cm from nipple. US/Breast Limited Unilateral IMPRESSION: Stable examination. ASSESSMENT CATEGORY: BIRADS Category 2: Benign. A letter regarding these results will be sent to the patient by the facility within 30 days. Electronically Signed: Juan Pablo Christopher MD at 14:20 EST ,
== END | disposition home or self-care (01) ==
PROVIDERS: PCP Internal Medicine; Visit Provider Student in an Organized Health Care Education/Training Program
DX: N60.09 Solitary cyst of unspecified breast (principal); N64.4 Mastodynia; R22.9 Localized swelling, mass and lump, unspecified
CPT/HCPCS: 76642; 76882

== ENCOUNTER → 2022-06-05 | Outpatient (CLI) | payer OTHER, SELFPAY ==
--- NOTE | 2022-06-05 14:05 | RAD_ITS ---
EXAM: XR LEFT KNEE COMPLETE, 4 OR MORE VIEWS CLINICAL INDICATION: Left Knee Pain TECHNIQUE: Four or more views of the left knee. This report was created using [employer] report generation technology. COMPARISON: None. FINDINGS: BONES/JOINTS: Unremarkable. No acute fracture. No subluxation. Normal alignment. Preservation of the joint space. No sclerotic or destructive changes observed. SOFT TISSUES: Unremarkable. No soft tissue swelling or gas. No radiopaque foreign body. RAD/Knee 4 or More Views IMPRESSION: Negative left knee x-rays. Electronically Signed: Phu Cosme MD at 2:36 EST ,
== END | disposition home or self-care (01) ==
LOC: RAD 14:01
PROVIDERS: PCP Internal Medicine; Visit Provider Internal Medicine
DX: M25.562 Pain in left knee (principal)
CPT/HCPCS: 73564

== ENCOUNTER → 2022-06-08 | Outpatient (CLI) | payer OTHER, SELFPAY ==
--- NOTE | 2022-06-08 14:05 | US_ITS ---
STUDY: ULTRASOUND BREAST - LEFT REASON FOR EXAM: Female, 26 years old. Pain in the left breast. Recent breast appear stable. TECHNIQUE: Axial and longitudinal images of the LEFT breast were performed with a high resolution ultrasound transducer. # OF IMAGES: 36 COMPARISON: None. FINDINGS: LEFT Breast: There is evidence of a dilated retroareolar ducts. Echogenic debris is seen within the dilated duct. This may represent either possible infected fluid versus a papilloma. US/Breast Complete Unilateral IMPRESSION: Dilated retroareolar ducts. Low level echogenic debris is seen within the dilated duct. Clinical correlation recommended. ASSESSMENT CATEGORY: BIRADS Category 2: Benign. A letter regarding these results will be sent to the patient by the facility within 30 days. Electronically Signed: Juan Pablo Christopher MD at 15:06 EST ,
== END | disposition home or self-care (01) ==
LOC: US 14:02
PROVIDERS: PCP Internal Medicine; Referring Provider Obstetrics & Gynecology; Visit Provider Obstetrics & Gynecology
DX: N64.4 Mastodynia (principal)
CPT/HCPCS: 76641

== ENCOUNTER → 2022-09-07 | Outpatient (CLI) | payer OTHER, SELFPAY ==
[2022-09-07 16:58] LABS: Absolute Lymphocyte Count 2.06 X10^3/uL (0.83-4.51); Basophil# 0.04 X10^3/uL; Basophil% 0.6 % (0-1); Eosinophil# 0.12 X10^3/uL; Eosinophils% 1.8 % (0-5); Hemoglobin 14.4 g/dL (12.0-15.0); Lymphocyte # 2.06 X10^3/ul (0.83-4.51); Lymphocyte % 30.3 % (19-41); Mean Corp Hgb Conc 33.5 g/dL (32-36); Mean Corpuscular Hgb 30.3 pg (27.0-32.0); Mean Corpuscular Volume 90.3 fL (81-99); Monocyte# 0.57 X10^3/uL; Monocyte% 8.4 % (0-10); NRBC Flagged by Analyzer 0 % (0-5); Neutrophil # 3.99 X10^3/uL (2.7-7.7); Neutrophil % 58.6 % (47-70); Platelet Count 389 K/mm3 (150-450); RBC Distribution Width CV 12.9 % (11.6-14.6); RBC Distribution Width SD 42.5 fl (35.1-43.9); Red Blood Count 4.76 M/mm3 (4.2-5.4); White Blood Count 6.8 K/mm3 (4.4-11.0)
[2022-09-07 17:29] LABS: Vitamin D,25 Hydroxy 47.2 ng/mL
[2022-09-07 17:43] LABS: ALB/GLOB Ratio 0.8 RATIO (0.9-2.4); AST(SGOT) 13 U/L (15-37); Alanine Aminotransfer ALT/SGPT 24 U/L (13-56); Albumin, Serum 3.4 g/dL (3.2-5.0); Alkaline Phosphatase 68 U/L (45-117); Anion Gap 7 (5-15); BUN 10 mg/dL (7-18); BUN/Creat Ratio 10.2 RATIO (10-20); Chloride 107 mmol/L (98-107); Creatinine, Serum 0.98 mg/dL (0.55-1.02); EST Glomerular Filtration Rate 73 mL/min (>60); Est Glom Filt Rate - Afr Amer 89 mL/min (>60); Globulin 4.3 g/dL (2.2-4.2); Glucose 73 mg/dL (74-106); Magnesium 2.4 mg/dL (1.6-2.6); Potassium 3.7 mmol/L (3.5-5.1); Protein, Total 7.7 g/dL (6.4-8.2); Sodium Level 140 mmol/L (136-145); T4 Free Direct 0.91 ng/dL (0.76-1.46); Thyroid Stim Hormone (TSH) 0.76 uIU/mL (0.358-3.74)
== END | disposition home or self-care (01) ==
LOC: BIMLAB 14:57
PROVIDERS: PCP Internal Medicine; Visit Provider Internal Medicine
DX: R00.2 Palpitations (principal); E55.9 Vitamin D deficiency, unspecified
CPT/HCPCS: 36415; 80053; 82306; 83735; 84439; 84443; 85025

== ENCOUNTER → 2022-09-18 | Outpatient (CLI) | payer OTHER, SELFPAY | END | disposition home or self-care (01) | LOC: PSN 12:04 | PROVIDERS: PCP Internal Medicine; Referring Provider Internal Medicine; Visit Provider Internal Medicine | DX: R00.2 Palpitations (principal) | CPT/HCPCS: 93225; 93226 ==

== ENCOUNTER → 2023-06-11 | Outpatient (CLI) | payer OTHER, SELFPAY ==
[2023-06-11 15:23] LABS: Absolute Neutrophil Count 3.3 X10^3/uL (2.0-7.7); Basophil# 0.02 X10^3/uL; Basophil% 0.4 % (0-1); Eosinophil# 0.18 X10^3/uL; Eosinophils% 3.2 % (0-5); Hematocrit 43.4 % (37-47); Hemoglobin 14.8 g/dL (12.0-15.0); Lymphocyte % 30.5 % (19-41); Mean Corp Hgb Conc 34.1 g/dL (32-36); Mean Corpuscular Hgb 30.7 pg (27.0-32.0); Mean Platelet Vol. 10.7 fl (6.2-12.0); Monocyte# 0.35 X10^3/uL; Monocyte% 6.3 % (0-10); NRBC Flagged by Analyzer 0 % (0-5); Neutrophil # 3.31 X10^3/uL (2.7-7.7); Neutrophil % 59.4 % (47-70); Platelet Count 342 K/mm3 (150-450); RBC Distribution Width CV 12.6 % (11.6-14.6); RBC Distribution Width SD 41.5 fl (35.1-43.9); Red Blood Count 4.82 M/mm3 (4.2-5.4); White Blood Count 5.6 K/mm3 (4.4-11.0)
[2023-06-11 15:48] LABS: Anion Gap 4 (5-15); BUN 11 mg/dL (7-18); BUN/Creat Ratio 12.6 RATIO (10-20); Calcium,Total 9.2 mg/dL (8.5-10.1); Chloride 108 mmol/L (98-107); Creatinine, Serum 0.87 mg/dL (0.55-1.02); EST Glomerular Filtration Rate 83 mL/min (>60); Est Glom Filt Rate - Afr Amer 101 mL/min (>60); Glucose 93 mg/dL (74-106); Potassium 4.3 mmol/L (3.5-5.1); Sodium Level 139 mmol/L (136-145)
== END | disposition home or self-care (01) ==
LOC: BIMLAB 14:01
PROVIDERS: PCP Internal Medicine; Referring Provider Internal Medicine; Visit Provider Internal Medicine
DX: E66.9 Obesity, unspecified (principal); J45.909 Unspecified asthma, uncomplicated; F41.9 Anxiety disorder, unspecified; F32.9 Major depressive disorder, single episode, unspecified
CPT/HCPCS: 36415; 80048; 85025

== ENCOUNTER → 2024-01-30 | Outpatient (CLI) | payer OTHER, SELFPAY ==
[2024-01-30 15:26] LABS: Absolute Lymphocyte Count 1.83 X10^3/uL (0.83-4.51); Absolute Neutrophil Count 2.6 X10^3/uL (2.0-7.7); Basophil# 0.03 X10^3/uL; Basophil% 0.6 % (0-1); Eosinophil# 0.14 X10^3/uL; Eosinophils% 2.9 % (0-5); Hemoglobin 13.8 g/dL (12.0-15.0); Lymphocyte # 1.83 X10^3/ul (0.83-4.51); Lymphocyte % 38.1 % (19-41); Mean Corp Hgb Conc 33.7 g/dL (32-36); Mean Corpuscular Volume 89.1 fL (81-99); Mean Platelet Vol. 10.6 fl (6.2-12.0); Monocyte# 0.24 X10^3/uL; NRBC Flagged by Analyzer 0 % (0-5); Neutrophil # 2.55 X10^3/uL (2.7-7.7); Neutrophil % 53.2 % (47-70); Platelet Count 345 K/mm3 (150-450); RBC Distribution Width CV 12.4 % (11.6-14.6); RBC Distribution Width SD 40.6 fl (35.1-43.9); White Blood Count 4.8 K/mm3 (4.4-11.0)
[2024-01-30 16:02] LABS: AST(SGOT) 18 U/L (15-37); Alanine Aminotransfer ALT/SGPT 16 U/L (13-56); Albumin, Serum 3.8 g/dL (3.2-5.0); Alkaline Phosphatase 63 U/L (45-117); Anion Gap 5 (5-15); BUN 8 mg/dL (7-18); BUN/Creat Ratio 9.6 RATIO (10-20); Chloride 105 mmol/L (98-107); Cholesterol 177 mg/dL (200); Creatinine, Serum 0.83 mg/dL (0.55-1.02); EST Glomerular Filtration Rate 88 mL/min (>60); Est Glom Filt Rate - Afr Amer 106 mL/min (>60); Globulin 3.7 g/dL (2.2-4.2); Glucose 99 mg/dL (74-106); High Density Lipoprotein 60 mg/dL; Potassium 4.1 mmol/L (3.5-5.1); Protein, Total 7.5 g/dL (6.4-8.2); Sodium Level 138 mmol/L (136-145); Triglycerides 44 mg/dL; Very Low Density Lipoprotein 9 mg/dL (5-40)
== END | disposition home or self-care (01) ==
LOC: BIMLAB 13:36
PROVIDERS: PCP Internal Medicine; Referring Provider Internal Medicine; Visit Provider Internal Medicine
DX: F41.9 Anxiety disorder, unspecified (principal); F32.9 Major depressive disorder, single episode, unspecified; E66.9 Obesity, unspecified
CPT/HCPCS: 36415; 80053; 80061; 85025

== ENCOUNTER → 2024-03-07 | Outpatient (CLI) | payer OTHER, SELFPAY ==
--- NOTE | 2024-03-07 10:30 | RAD_ITS ---
EXAM: XR LEFT TOES, 2 OR MORE VIEWS CLINICAL INDICATION: Left Great Toe Pain TECHNIQUE: Frontal, lateral and oblique views of the toes of the left foot. COMPARISON: Left foot, 12/20/2011 FINDINGS: BONES/JOINTS: No significant abnormality. No acute fracture. No dislocation. SOFT TISSUES: Soft tissue swelling in the great toe. No radiopaque foreign body. RAD/Toe(s) Min 2 Views IMPRESSION: Soft tissue swelling in the great toe. No acute osseous findings. Electronically Signed: Enrique Jackson DO at 19:12 EST ,
[2024-03-07 11:44] LABS: Free T3 2.7 pg/mL (2.18-3.98); Magnesium 2.2 mg/dL (1.6-2.6); T4 Free Direct 0.97 ng/dL (0.76-1.46); Thyroid Stim Hormone (TSH) 0.791 uIU/mL (0.358-3.740)
== END | disposition home or self-care (01) ==
PROVIDERS: PCP Internal Medicine; Referring Provider Physician Assistant Medical; Visit Provider Physician Assistant Medical
DX: R00.2 Palpitations (principal); M79.675 Pain in left toe(s)
CPT/HCPCS: 36415; 73660; 83735; 84439; 84443; 84481

== ENCOUNTER → 2024-03-24 | Outpatient (CLI) | payer OTHER, SELFPAY ==
--- NOTE | 2024-03-24 13:19 | ECHOD_ITS ---
Reason For Study: Arrhythmia Procedure This was a 2D Doppler, Color Flow transthoracic echocardiogram. Exam performed in department. Left Ventricle Normal LV size. Mid cavitary false tendon noted. Left ventricular systolic function is normal. The left ventricular ejection fraction is 60 %. No regional wall motion abnormalities noted. Right Ventricle Normal RV size. Normal systolic function. Atria Normal left atrium. Normal right atrium. Mitral Valve Normal mitral valve. Tricuspid Valve Normal tricuspid valve. Aortic Valve Trisinus/trileaflet aortic valve. Pulmonic Valve Normal pulmonic valve. Great Vessels Normal aortic root. The pulmonary artery is normal size. Inferior vena cava collapse with respiration. Pericardium/Pleural No pericardial effusion. MMode/2D Measurements & Calculations LVIDd: 3.6 cm IVSd: 1.0 cm Ao root diam: 2.5 cm LVIDs: 2.6 cm LVPWd: 0.99 cm FS: 28.1 % LAV(MOD-bp): 19.9 ml LVAd ap4: 20.9 cm2 SV(MOD-sp4): 29.6 ml LAV(MOD-bp) Indexed: 10.0 ml/m2 LVLd ap4: 7.2 cm SI(MOD-sp4): 14.8 ml/m2 LAV(MOD-sp2): 20.1 ml EDV(MOD-sp4): 50.9 ml LAV(MOD-sp4): 15.5 ml EDV(sp4-el): 51.6 ml LVAs ap4: 12.1 cm2 LVLs ap4: 5.9 cm ESV(MOD-sp4): 21.3 ml ESV(sp4-el): 20.8 ml EF(MOD-sp4): 58.1 % EF(sp4-el): 59.7 % SV(sp4-el): 30.8 ml LA A4 area: 9.4 cm2 LA dimension(2D): 2.3 cm RA A4 area: 7.2 cm2 Time Measurements MV dec time: 0.25 sec Doppler Measurements & Calculations MV E max heriberto: 61.6 cm/sec Lat Peak E' Heriberto: 17.5 cm/sec Med Peak E' Heriberto: 11.9 cm/sec MV A max heriberto: 47.0 cm/sec E/E' lat: 3.5 E/E' med: 5.2 MV E/A: 1.3 MV V2 max: 81.3 cm/sec Ao V2 max: 126.5 cm/sec MV max P.6 mmHg MV dec slope: 247.2 cm/sec2 Ao max P.4 mmHg MV V2 mean: 49.2 cm/sec Ao V2 mean: 88.0 cm/sec MV mean P.1 mmHg Ao mean P.6 mmHg MV V2 VTI: 20.6 cm Ao V2 VTI: 23.8 cm AV (velocity ratio): 0.82 LV V1 max: 108.9 cm/sec PA V2 max: 115.5 cm/sec LV V1 max P.8 mmHg PA V2 mean: 78.7 cm/sec LV V1 mean P.5 mmHg LV V1 mean: 73.8 cm/sec LV V1 VTI: 19.5 cm ECHO/Echo Complete Interpretation Summary Normal LV size. Left ventricular systolic function is normal. The left ventricular ejection fraction is 60 %. Mid cavitary false tendon noted. Structurally normal valves. Ordering Physician: Antonia Breen Referring Physician: Antonia Breen Performed By: Kristie Jack RCS
== END | disposition home or self-care (01) ==
LOC: CVS 13:16
PROVIDERS: PCP Internal Medicine; Referring Provider Physician Assistant Medical; Visit Provider Physician Assistant Medical
DX: I47.29 Other ventricular tachycardia (principal)
CPT/HCPCS: 93306

== ENCOUNTER 2024-04-07 18:43 | Emergency (ER) | payer OTHER, SELFPAY ==
[2024-04-07 18:44] VITALS: BP 132/84; PULSE 100; RESP 16; TEMP 36.9; O2SAT 100; BMI 30.7
[2024-04-07] MEDS: 0.9% Normal Saline (1000mL) 1,000 ML 999 ML IV (21:06)
[2024-04-07] MEDS: Metoclopramide 10 MG/2 ML Vial IV (21:06)
[2024-04-07] MEDS: Acetaminophen 500 MG Tablet 1000 MG PO (21:07)
[2024-04-07 21:12] VITALS: BP 125/75; PULSE 80; RESP 16; O2SAT 98
[2024-04-07 21:14] LABS: Bacteria 0 SEEN /hpf (None Seen); Mucous, Urine 0 SEEN /hpf (<or=2+)
[2024-04-07 21:16] LABS: Color, Urine Yellow (Yellow); Glucose, Dipstick Normal (Normal); Ketone-Dipstick Negative (Negative); Leukocyte Esterase-Dipstick Negative /ul (Negative); Nitrite-Dipstick Negative (Negative); Occult Blood-Urine Negative /ul (Negative); Protein-Dipstick Negative (Negative); Urine Bilirubin Dipstick Negative (Negative); Urine Clarity Clear (Clear); Urine Urobilinogen Normal (Normal)
[2024-04-07 21:20] LABS: Internal QC Validated? YES +Cl - CLEAR BKGD; Pregnancy, Serum, hCG Quali. NEGATIVE Negative
[2024-04-07 21:26] LABS: Squamous Epithelial Cells - UA 0-5 SEEN /hpf (5-10); White Blood Cells 0-5 SEEN /hpf (0-5)
[2024-04-07 21:27] LABS: Red Blood Cells-Urine 0-5 SEEN /hpf (0-5)
[2024-04-07] MEDS: DiphenhydrAMINE 50 MG/ML Syringe 25 MG IV (21:31)
[2024-04-07] MEDS: Ketorolac 15 MG/ML Vial IV (21:31)
--- NOTE | 2024-04-07 21:55 | EX.ED.DYSGE1 ---
HPI History of Present Illness Chief Complaint: Headache Narrative Narrative: Patient is a 28-year-old female with past medical history of migraine headache, PCOS, depression, marijuana use, GERD who presents to the emergency department with a chief complaint of headache. Patient states that for the past few days she had developed a headache and felt like her migraine headaches. She states that she tried to take her rescue medication at home today and noted that this did not work therefore she came here for the valuation management. Patient denies any recent sick contacts. 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 Cholestasis Unspecified open wound of nose, sequela Vision problems Anxiety and depression UTI (urinary tract infection) Seasonal allergies Intradermal nevus Back pain Frequent headaches Asthma Neoplasm of skin of cheek Family history of skin cancer Neoplasm of skin of scalp Home Medications ?Medication ?Instructions ?Recorded ?Last Taken ?Type ibuprofen 200 mg capsule 200 mg PO Q6H PRN 01/09/22 Unknown History ascorbic acid (vitamin C) 500 mg mg PO 03/14/22 Unknown History capsule cholecalciferol (vitamin D3) 50 50 mcg PO DAILY 03/14/22 Unknown History mcg (2,000 unit) capsule magnesium 250 mg tablet 250 mg PO DAILY 03/14/22 Unknown History albuterol sulfate 90 mcg/actuation 1 - 2 puff inhalation Q4H PRN PRN 12/06/22 Unknown Rx aerosol inhaler Asthma #8.5 grams rimegepant 75 mg disintegrating 75 mg PO ONCE PRN 12/06/22 Unknown History tablet (Nurtec ODT) venlafaxine 150 mg 150 mg PO DAILY 12/06/22 Unknown History capsule,extended release 24 hr fluticasone propionate 50 1 spray intranasal DAILY #16 grams 05/08/23 Unknown Rx mcg/actuation nasal spray,suspension (Flonase Allergy Relief) semaglutide (weight loss) 2.4 2.4 mg (0.75 mL) subcut QWEEK 3 01/30/24 Unknown Rx mg/0.75 mL subcutaneous pen months #9.75 mL injector Allergy/AdvReac Type Severity Reaction Status Date / Time sertraline (From Zoloft) AdvReac headaches Verified 04/07/24 18:44 Family History Mother Cervical cancer Heart disease LBBB Migraine Grandmother Asthma Hypertension Migraine Aneurysm Grandmother Diabetes Skin cancer Lung cancer Heart disease maternal CVA (cerebral vascular accident) Ihgtvnu-Jxxjn-Waoqs disease Father Baieqbn-Cndaq-Nbffv disease Grandfather Aneurysm Grandmother Aneurysm Other Depression (emotion) Surgical History History of cholecystectomy (~10/2019) History of excision of lesion Cavernous hemangioma Social History household members: family housing: house current occupational status: unemployed current occupation: Stay at home mom sexually active: Yes Smoking Status: Never smoker alcohol intake: current alcohol intake frequency: holidays/special occasions only substance use type: marijuana caffeine: Yes Type: coffee Number of servings: 0 what type of physical activity do you participate in: walking, running and weight training frequency: 3-4 times per week seatbelt use: always do you feel safe at home: Yes additional social history: DOES NOT USE ASPIRIN DOES USE IBUPROFEN NEEDED Has medical marijuana card as needed ROS ROS ED ROS Narrative Constitutional: Complains of headache as noted above denies any lightheadedness, dizziness, fevers, chills Eyes: Denies change in vision double vision blurry vision Cardiovascular: Denies chest pain or palpitations Respiratory: Denies cough or wheezing shortness of breath Abdomen: Denies abdominal pain nausea vomit diarrhea : Denies any urinary symptoms Neurological: Denies numbness, weakness, tingling Musculoskeletal: Denies back pain Skin: Denies rashes or lesions EXAM Physical Exam Narrative Exam Narrative: General: Patient lying in bed rest comfortably did not appear to be in acute distress Head: Atraumatic, normocephalic Eyes: PERRL body, EOMI bilateral, no conjunctival injection noted Neck: Soft, supple, trachea midline, no concern for meningitis Cardiovascular: Regular rate and rhythm no murmurs gallops rubs noted Respiratory: Clear to auscultation bilaterally Abdomen: Soft, nondistended, nontender to palpation, bowel sounds present x 4] Extremities: +5/5 strength noted in the bilateral upper and lower extremities, radial pulses +2/4 in the bilateral extremities, no pedal edema on exam Neurological: Patient follow commands knew that she was at [facility] years 2023. Sensation grossly intact. NIH of 0 GCS 15 Skin: Warm, dry, intact no rashes or lesions noted Const Vital Signs: 04/07/24 18:44 04/07/24 21:12 Temperature 98.4 F Temperature Source Temporal Pulse Rate 100 80 Respiratory Rate 16 16 Blood Pressure 132/84 H 125/75 H Blood Pressure Mean 100 91 Pulse Ox 100 98 Oxygen Delivery Method Room Air MDM MDM MDM Narrative Medical decision making narrative: Patient is a 28-year-old female who presented to the Emergency Department with a chief complaint of headache. Patient will have a workup performed here on the differential diagnose includes but not limited to migraine headache, tension ache, cluster headache, dehydration, . Once workup is obtained reviewed she will be reevaluated. Patient be given IV fluids, Tylenol, Reglan. Patient will be given Toradol and Benadryl. She will be reevaluated. Patient's test negative, urinalysis reviewed showed no evidence of infection. On reevaluation the patient she feels significantly improved she would like to go home at this point time. She is advised to continue to hydrate orally and use her migraine medication as prescribed. She is encouraged return with worsening symptoms or concerns. She is vies follow-up with primary care physician she is agreeable this plan as well as for member at bedside all questions answered she was discharged home in stable condition. Lab Data Labs: Laboratory Results - last 24 hr 04/07/24 04/07/24 20:52 21:04 Serum , Qual NEGATIVE Urine Color Yellow Urine Clarity Clear Urine pH 7.0 Ur Specific [place] 1.010 Urine Protein Negative Urine Glucose (UA) Normal Urine Ketones Negative Urine Occult Blood Negative Urine Nitrite Negative Urine Bilirubin Negative Urine Urobilinogen Normal Ur Leukocyte Esterase Negative Urine RBC 0-5 SEEN Urine WBC 0-5 SEEN Ur Squamous Epith Cells 0-5 SEEN Urine Bacteria 0 SEEN Urine Mucus 0 SEEN Discharge Plan Triage Chief Complaint: Headache ED Provider: Duran Gan Dx/Rx/DC Orders Clinical Impression: Headache, migraine Prescriptions: No Action ibuprofen 200 mg capsule 200 mg PO Q6H PRN cholecalciferol (vitamin D3) 50 mcg (2,000 unit) capsule 50 mcg PO DAILY ascorbic acid (vitamin C) 500 mg capsule PO magnesium 250 mg tablet 250 mg PO DAILY Nurtec ODT 75 mg tablet,disintegrating 75 mg PO ONCE PRN Patient Comments: TAKE 1 TABLET BY MOUTH ONCE DAILY NEEDED (AT ONSET OF MIGRAINE. NO MORE THAN 75 MG IN 24 HOURS). venlafaxine 150 mg capsule,extended release 24hr 150 mg PO DAILY Patient Comments: TAKE 1 CAPSULE BY MOUTH ONCE DAILY albuterol sulfate 90 mcg/actuation HFA aerosol inhaler 1 - 2 puff inhalation Q4H PRN PRN (Reason: Asthma) Qty: 8.5 1RF fluticasone propionate [Flonase Allergy Relief] 50 mcg/actuation spray,suspension 1 spray intranasal DAILY Qty: 16 0RF Rx Instructions: administer into each nostril semaglutide (weight loss) 2.4 mg/0.75 mL pen injector 2.4 mg subcut QWEEK 90 Days Qty: 9.75 0RF Primary Care Provider: Samra Mauricio Referrals: Samra Mauricio MD [Primary Care Provider] - Activity Restrictions/Additional Instructions: Follow-up with your doctor in the outpatient setting. Return with worsening symptoms or other concerns. Take migraine medication as prescribed. Print Language: Syrian Disposition Disposition: Home, Self Care
== END 2024-04-07 22:25 | disposition home or self-care (01) ==
PROVIDERS: Emergency Provider Emergency Medicine; PCP Internal Medicine; Visit Provider Emergency Medicine
DX: G43.909 Migraine, unspecified, not intractable, without status migrainosus (principal); R29.700 NIHSS score 0; K21.9 Gastro-esophageal reflux disease without esophagitis; J45.909 Unspecified asthma, uncomplicated
CPT/HCPCS: 81001; 84703; 96361; 96374; 96375; 99284; A4216

== ENCOUNTER → 2024-06-17 | Outpatient (CLI) | payer OTHER, SELFPAY ==
[2024-06-17 10:47] LABS: Absolute Lymphocyte Count 2.19 X10^3/uL (0.83-4.51); Absolute Neutrophil Count 2.9 X10^3/uL (2.0-7.7); Basophil# 0.02 X10^3/uL; Basophil% 0.3 % (0-1); Eosinophil# 0.24 X10^3/uL; Eosinophils% 4.1 % (0-5); Hematocrit 41.3 % (37-47); Hemoglobin 14.1 g/dL (12.0-15.0); Lymphocyte # 2.19 X10^3/ul (0.83-4.51); Lymphocyte % 37.1 % (19-41); Mean Corp Hgb Conc 34.1 g/dL (32-36); Mean Corpuscular Hgb 30.4 pg (27.0-32.0); Mean Platelet Vol. 10.2 fl (6.2-12.0); Monocyte# 0.51 X10^3/uL; Monocyte% 8.6 % (0-10); NRBC Flagged by Analyzer 0 % (0-5); Neutrophil # 2.93 X10^3/uL (2.7-7.7); Neutrophil % 49.7 % (47-70); Platelet Count 354 K/mm3 (150-450); RBC Distribution Width CV 13.2 % (11.6-14.6); RBC Distribution Width SD 42.8 fl (35.1-43.9); Red Blood Count 4.64 M/mm3 (4.2-5.4); White Blood Count 5.9 K/mm3 (4.4-11.0)
[2024-06-17 11:00] LABS: Internal QC Validated? YES +Cl - CLEAR BKGD
[2024-06-17 11:01] LABS: Pregnancy, Serum, hCG Quali. NEGATIVE Negative; Record Kit Lot#, Serum Preg. 899023
[2024-06-17 11:04] LABS: Anion Gap 7 (5-15); BUN 11 mg/dL (4-19); BUN/Creat Ratio 13.5 RATIO (10-20); Calcium,Total 9.2 mg/dL (7.6-11.0); Carbon Dioxide 24.5 mmol/L (21.0-32.0); Chloride 109 mmol/L (98-108); Creatinine, Serum 0.84 mg/dL (0.70-1.20); EST Glomerular Filtration Rate 98 (>60); Glucose 98 mg/dL (70-99); Potassium 4.5 mmol/L (3.3-5.1); Sodium Level 140 mmol/L (133-145)
--- NOTE | 2024-06-18 07:43 | TILTTABLE_ITS ---
Staff Staff: Lisa Herron and Shelby Salgado Summary Pre Test Resting HR: 80 Pre Test Resting BP: 129/95 Minimum Test HR: 80 Maximum Test HR: 150 Minimum Test BP: 98/78 Maximum Test BP: 136/79 Reason for Test Termination: Reached Maximum Test Time Physician Tilt Table Report Patient's Physicians Primary Care Physician: Samra Mauricio Indications/Diagnosis: Syncope Procedure Comments: The patient was brought to the noninvasive lab in the postabsorptive nonsedated state. Informed consent was obtained. Initial EKG demonstrated sinus rhythm with a rate of 80 bpm. Initial blood pressure 129/95 mmHg. The patient was then put in the 70 degree head upright tilt position for total duration of 30 minutes. The patient maintained sinus rhythm and sinus tachycardia throughout the recording. EKG changes were not noted. Patient ma intained sinus rhythm with nonspecific ST changes. Patient also did not note any significant symptomatology. Approximately 26 minutes she did drop her blood pressure to 98/78 mmHg with minimal symptomatology. This recovered almost immediately. The recovery period was uneventful. Summary: Negative tilt table test with A brief episode of mild hypotension only noted
[2024-06-18 07:46] VITALS: BP 129/95; BP 136/79; BP 98/78
== END | disposition home or self-care (01) ==
LOC: CVS 10:13
PROVIDERS: PCP Internal Medicine; Referring Provider Internal Medicine; Visit Provider Internal Medicine
DX: R00.2 Palpitations (principal); R42 Dizziness and giddiness
CPT/HCPCS: 36415; 80048; 84703; 85025; 93660; A4216